=== PATIENT | female | born 1995 | race American Indian/Alaskan Native ===

== ENCOUNTER 2021-07-09 10:11 | Inpatient (IN) | payer MEDICAID ==
[2021-07-09] MEDS ORDERED: BUTORPHANOL 2 MG/1 ML INJ ONE (10:49)
[2021-07-09] MEDS ORDERED: TERBUTALINE 1 MG/1 ML INJ SUB-Q PRN (10:55)
[2021-07-09] MEDS ORDERED: ACETAMINOPHEN 325 MG TAB PO PRN (10:55)
[2021-07-09] MEDS ORDERED: METHYLERGONOVINE MALEATE 0.2 MG/ML VIAL IM PRN (10:55)
[2021-07-09] MEDS ORDERED: BUTORPHANOL 2 MG/1 ML INJ IV PRN ×2 (10:55)
[2021-07-09] MEDS ORDERED: ePHEDrine SULFATE 50 MG/1 ML INJ IV PRN ×2 (10:55→12:20)
[2021-07-09] MEDS ORDERED: LOPERAMIDE 2 MG CAP PO PRN (10:55)
[2021-07-09] MEDS ORDERED: MINERAL OIL 30 ML ORAL LIQD PO PRN (10:55)
[2021-07-09] MEDS ORDERED: ONDANSETRON 4 MG/2 ML INJ IV PRN ×2 (10:55→12:20)
[2021-07-09] MEDS ORDERED: miSOPROStol 200 MCG TAB PR PRN (10:55)
[2021-07-09] MEDS ORDERED: CARBOPROST TROMETHAMINE 250 MCG/1 ML INJ IM PRN (10:55)
[2021-07-09] MEDS ORDERED: OXYTOCIN 10 UNIT/1 ML INJ IM PRN (10:55)
[2021-07-09] MEDS ORDERED: LIDOCAINE (2%) 20 MG/1 ML VIAL 20 ML MDV INFILTRATI ONE (10:55)
[2021-07-09] MEDS ORDERED: OXYTOCIN DRIP 30 UNITS/500 ML BAG IV SCH ×2 (11:00→23:45)
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
--- NOTE | 2021-07-09 11:22 | Ultrasound Report ---
ULTRASOUND OBSTETRIC LIMITED INDICATION / CLINICAL INFORMATION: Evaluate cardiac activity. COMPARISON: OB ultrasound performed on 04/13/2021. FINDINGS: A single intrauterine fetus is seen in cephalic presentation. No cardiac activity is identified . IMPRESSION: Sonographic evidence of demise. Signer Name: Flakito Pope MD Signed: 07/09/2021 11:11 AM Workstation Name: [id number]
[2021-07-09] MEDS: LACTATED RINGERS 1,000 ML IV SCH ×2 (11:30→12:25)
[2021-07-09 11:56] LABS: Hemoglobin 11.4 gm/dl (10.1-14.3); Mean Corpuscular HGB Conc 34 % (30-34); Mean Corpuscular Volume 84 fl (79-97); Platelet Count 166 K/mm3 (140-440); Red Blood Count 4.05 M/mm3 (3.65-5.03); Red Cell Distribution Width 15.1 % (13.2-15.2)
[2021-07-09] MEDS ORDERED: diphenhydrAMINE 50 MG/ML VIAL IV PRN (12:20)
[2021-07-09] MEDS ORDERED: NALOXONE 2 MG/2 ML INJ IV PRN (12:20)
[2021-07-09] MEDS ORDERED: NalbUPHINE 10 MG/1 ML INJ IV PRN (12:20)
[2021-07-09] MEDS ORDERED: LACTATED RINGERS 250 ML IV SOLN IV ONE (12:20)
--- NOTE | 2021-07-09 12:44 | Anesthesia Consultation ---
Anesthesia Consult and Med Hx Date of service: 07/09/21 - Airway Anesthetic Teeth Evaluation: Good ROM Head & Neck: Adequate Mental/Hyoid Distance: Adequate Mallampati Class: Class III Intubation Access Assessment: Possibly Difficult - Pulmonary Exam CTA: Yes - Cardiac Exam Cardiac Exam: RRR - Pre-Operative Health Status ASA Pre-Surgery Classification: ASA2 Proposed Anesthetic Plan: Epidural - Pulmonary Hx Smoking: Yes Hx Asthma: No Hx Sleep Apnea: No - Cardiovascular System Hx Hypertension: Yes Hx Heart Attack/AMI: No Hx Angina: No - Central Nervous System Hx Seizures: No Hx Psychiatric Problems: No - Gastrointestinal Hx Gastroesophageal Reflux Disease: No - Endocrine Hx Renal Disease: No Hx Liver Disease: No Hx Insulin Dependent Diabetes: No Hx Non-Insulin Dependent Diabetes: No Hx Hypothyroidism: No Hx Hyperthyroidism: No - Hematic Hx Anemia: No Hx Sickle Cell Disease: No - Other Systems Hx Obesity: Yes
--- NOTE | 2021-07-09 12:45 | Progress Note ---
Labor Epidural - Labor Epidural Start Time: 12:31 Stop Time: 12:40 Performed by:: CAROLE ROTHMAN Procedure: Patient is requesting epidural for labor and pain. H&P, labs were reviewed. Patient IDed, all questions and concerns were answered, and consent was signed. Timeout was performed at bedside. Patient in sitting position. Sterile prep and drape was performed. 3ml of 1% lidocaine skin wheal at L[3]- L [4]. 17- gauge Tuohy epidural needle was advanced to loss of resistance with air technique 9cm. Negative CSF negative blood. Epidural catheter advanced to [15] centimeters. [negative] Aspiration [negative] test dose. Sterile dressing applied. Patient tolerated procedure.
[2021-07-09] MEDS: fentaNYL-BUPIV 2 MCG/ML-0.125% 200 MCG/100 ML BAG EPIDURAL SCH (13:10)
[2021-07-09] MEDS ORDERED: miSOPROStol 25 MCG TAB VG ONE (15:49)
[2021-07-09] MEDS ORDERED: miSOPROStol 100 MCG TAB VG SCH (16:00)
--- NOTE | 2021-07-09 17:56 | Event Note ---
Date: 07/09/21 Discussed with the patient findings of ultrasound with diagnosis IUFD. Patient is understandably upset with the diagnosis and findings. Discussed the plan of induction of labor. Patient is comfortable after epidural. Attempted to answer all the patient's questions. Discussed with the patient had no clear answer of cause we have right now. Discussed with patient to think about autopsy after delivery. Discussed we will evaluate placenta. Answer questions about to delivery and how we will be done. We will continue with current plan continue to keep patient as comfortable as possible.
--- NOTE | 2021-07-09 18:36 | Ultrasound Report ---
US OB limited INDICATION: Placenta Grade. COMPARISON: None available. FINDINGS: Placenta is right lateral. There is no significant vascularity in the placenta. Unable grade based on provided images. No heart tones are identified. Signer Name: Holden Jones MD Signed: 07/09/2021 6:31 PM Workstation Name: [id number]
[2021-07-09 19:21] LABS: Amphetamine Screen,Urine PRESUMPTIVE NEGATIVE; Benzodiazepines Screen,Urine PRESUMPTIVE NEGATIVE; Cannabinoid Screen,Urine PRESUMPTIVE POSITIVE; Cocaine Screen,Urine PRESUMPTIVE NEGATIVE; Methadone Screen,Urine PRESUMPTIVE NEGATIVE; Opiate Screen,Urine PRESUMPTIVE NEGATIVE
[2021-07-09] MEDS ORDERED: miSOPROStol 200 MCG TAB VG SCH (22:00)
[2021-07-10] MEDS: fentaNYL-BUPIV 2 MCG/ML-0.125% 200 MCG/100 ML BAG EPIDURAL SCH ×3 (00:02→22:25)
[2021-07-10] MEDS ORDERED: BUPIVACAINE/PF (0.25%) 2.5 MG/ML 10 ML VIAL INFILTRATI ONE (05:39)
--- NOTE | 2021-07-10 07:56 | Progress Note ---
Assessment and Plan A: 25 y.o. @ 33.1 wks, IUFD. Vaginal bleeding. Blood urine noted. Anxiety and depression. - Patient Problems (1) IUFD at 20 weeks or more of gestation Current Visit: Yes Status: Acute Plan to address problem: Continue with Pitocin per protocol. TOCO monitor adjusted. Anesthesia to come and bolus epidural. Will replace if needed. Benadryl ordered to see if this helps patient get some sleep. Continue to monitor anxiety and depression. - Psych has been consulted. - Awaiting Psych assessment and recommendations. Continue to monitor bleeding and blood in urine. Subjective - Subjective Date of service: 07/10/21 Principal diagnosis: IUFD @ 33.1 + wks, epidural in place, Pitocin infusion Interval history: Explained plan of care to patient and family member. Continue with Pitocin. Pt states that she is not comfortable with epidural. States that she is feeling contractions and just in general has a lot of abdominal pain. Anesthesia to bedside to evaluate. Also of note, according to the RN, the patient has not slept since admission. Patient reports: new complaints (Not comfortable with epidural. ), contractions Objective - Vital Signs Vital Signs: Vital Signs - 12hr 07/09/21 07/09/21 07/09/21 19:51 19:56 20:00 Temperature 98.0 F Pulse Rate 95 H 95 H Blood Pressure O2 Sat by Pulse 100 100 Oximetry 07/09/21 07/09/21 07/09/21 20:01 20:05 20:06 Temperature Pulse Rate 91 H 96 H 87 Blood Pressure 114/74 O2 Sat by Pulse 100 100 Oximetry 07/09/21 07/09/21 07/09/21 20:11 20:16 20:21 Temperature Pulse Rate 102 H 95 H 93 H Blood Pressure O2 Sat by Pulse 100 100 100 Oximetry 07/09/21 07/09/21 07/09/21 20:26 20:31 20:35 Temperature Pulse Rate 118 H 96 H 74 Blood Pressure 110/71 O2 Sat by Pulse 100 100 Oximetry 07/09/21 07/09/21 07/09/21 20:36 20:41 20:46 Temperature Pulse Rate 75 75 78 Blood Pressure O2 Sat by Pulse 100 100 100 Oximetry 07/09/21 07/09/21 07/09/21 20:51 20:56 21:01 Temperature Pulse Rate 86 112 H 84 Blood Pressure O2 Sat by Pulse 100 100 100 Oximetry 07/09/21 07/09/21 07/09/21 21:06 21:11 21:16 Temperature Pulse Rate 100 H 91 H 105 H Blood Pressure 111/65 O2 Sat by Pulse 100 100 100 Oximetry 07/09/21 07/09/21 07/09/21 21:21 21:26 21:27 Temperature Pulse Rate 90 99 H 103 H Blood Pressure 108/73 O2 Sat by Pulse 100 100 Oximetry 07/09/21 07/09/21 07/09/21 21:29 21:31 21:36 Temperature Pulse Rate 91 H 98 H 120 H Blood Pressure O2 Sat by Pulse 93 100 100 Oximetry 07/09/21 07/09/21 07/09/21 21:41 21:46 21:51 Temperature Pulse Rate 99 H 93 H 105 H Blood Pressure O2 Sat by Pulse 100 100 100 Oximetry 07/09/21 07/09/21 07/09/21 21:56 22:01 22:05 Temperature Pulse Rate 98 H 96 H 100 H Blood Pressure 112/74 O2 Sat by Pulse 100 100 Oximetry 07/09/21 07/09/21 07/09/21 22:06 22:11 22:16 Temperature Pulse Rate 123 H 102 H 90 Blood Pressure O2 Sat by Pulse 100 100 100 Oximetry 07/09/21 07/09/21 07/09/21 22:21 22:26 22:31 Temperature Pulse Rate 109 H 102 H 97 H Blood Pressure O2 Sat by Pulse 100 100 100 Oximetry 07/09/21 07/09/21 07/09/21 22:35 22:36 22:41 Temperature Pulse Rate 106 H 100 H 105 H Blood Pressure 112/69 O2 Sat by Pulse 100 99 Oximetry 07/09/21 07/09/21 07/09/21 22:46 22:51 22:56 Temperature Pulse Rate 114 H 95 H 100 H Blood Pressure O2 Sat by Pulse 99 100 100 Oximetry 07/09/21 07/09/21 07/09/21 23:01 23:05 23:06 Temperature Pulse Rate 100 H 101 H 100 H Blood Pressure 122/84 121/69 O2 Sat by Pulse 100 100 Oximetry 07/09/21 07/09/21 07/09/21 23:11 23:16 23:21 Temperature Pulse Rate 95 H 113 H 101 H Blood Pressure O2 Sat by Pulse 100 100 100 Oximetry 07/09/21 07/09/21 07/09/21 23:26 23:31 23:35 Temperature Pulse Rate 94 H 109 H 102 H Blood Pressure 117/89 O2 Sat by Pulse 100 100 Oximetry 07/09/21 07/09/21 07/09/21 23:36 23:41 23:46 Temperature Pulse Rate 101 H 94 H 94 H Blood Pressure O2 Sat by Pulse 100 100 100 Oximetry 07/09/21 07/09/21 07/10/21 23:51 23:56 00:01 Temperature Pulse Rate 109 H 98 H 98 H Blood Pressure O2 Sat by Pulse 100 100 100 Oximetry 07/10/21 07/10/21 07/10/21 00:15 00:18 00:20 Temperature Pulse Rate 89 95 H 99 H Blood Pressure 110/52 O2 Sat by Pulse 99 100 Oximetry 07/10/21 07/10/21 07/10/21 00:25 00:30 00:35 Temperature Pulse Rate 102 H 105 H 94 H Blood Pressure 112/68 O2 Sat by Pulse 100 100 100 Oximetry 07/10/21 07/10/21 07/10/21 00:40 00:45 00:50 Temperature Pulse Rate 113 H 106 H 103 H Blood Pressure O2 Sat by Pulse 99 100 99 Oximetry 07/10/21 07/10/21 07/10/21 00:55 01:00 01:05 Temperature Pulse Rate 92 H 90 85 Blood Pressure 119/72 O2 Sat by Pulse 99 99 99 Oximetry 07/10/21 07/10/21 07/10/21 01:10 01:15 01:20 Temperature Pulse Rate 109 H 95 H 88 Blood Pressure O2 Sat by Pulse 99 100 100 Oximetry 07/10/21 07/10/21 07/10/21 01:25 01:30 01:35 Temperature Pulse Rate 85 86 90 Blood Pressure 103/67 O2 Sat by Pulse 99 99 100 Oximetry 07/10/21 07/10/21 07/10/21 01:40 01:45 01:50 Temperature Pulse Rate 94 H 91 H 93 H Blood Pressure O2 Sat by Pulse 99 100 99 Oximetry 07/10/21 07/10/21 07/10/21 01:55 02:00 02:05 Temperature Pulse Rate 84 112 H 98 H Blood Pressure 112/58 O2 Sat by Pulse 99 98 99 Oximetry 07/10/21 07/10/21 07/10/21 02:10 02:15 02:20 Temperature Pulse Rate 82 88 85 Blood Pressure O2 Sat by Pulse 100 99 99 Oximetry 07/10/21 07/10/21 07/10/21 02:25 02:30 02:35 Temperature Pulse Rate 85 82 85 Blood Pressure 110/70 O2 Sat by Pulse 99 99 99 Oximetry 07/10/21 07/10/21 07/10/21 02:40 02:45 02:50 Temperature Pulse Rate 84 83 89 Blood Pressure O2 Sat by Pulse 99 99 99 Oximetry 07/10/21 07/10/21 07/10/21 02:55 03:00 03:05 Temperature Pulse Rate 85 86 102 H Blood Pressure 122/77 O2 Sat by Pulse 99 98 100 Oximetry 07/10/21 07/10/21 07/10/21 03:10 03:15 03:20 Temperature Pulse Rate 88 96 H 93 H Blood Pressure O2 Sat by Pulse 99 99 98 Oximetry 07/10/21 07/10/21 07/10/21 03:25 03:30 03:35 Temperature Pulse Rate 81 87 91 H Blood Pressure 115/69 O2 Sat by Pulse 99 98 100 Oximetry 07/10/21 07/10/21 07/10/21 03:40 03:45 03:50 Temperature Pulse Rate 87 110 H 96 H Blood Pressure O2 Sat by Pulse 99 98 100 Oximetry 07/10/21 07/10/21 07/10/21 03:55 04:00 04:05 Temperature Pulse Rate 85 91 H 81 Blood Pressure 113/72 O2 Sat by Pulse 100 99 99 Oximetry 07/10/21 07/10/21 07/10/21 04:10 04:15 04:20 Temperature Pulse Rate 88 97 H 103 H Blood Pressure O2 Sat by Pulse 98 99 98 Oximetry 07/10/21 07/10/21 07/10/21 04:25 04:30 04:35 Temperature Pulse Rate 102 H 101 H 110 H Blood Pressure 115/68 O2 Sat by Pulse 98 98 100 Oximetry 07/10/21 07/10/21 07/10/21 04:40 04:45 04:50 Temperature Pulse Rate 105 H 91 H 96 H Blood Pressure O2 Sat by Pulse 100 100 100 Oximetry 07/10/21 07/10/21 07/10/21 04:55 05:00 05:05 Temperature Pulse Rate 86 105 H 98 H Blood Pressure O2 Sat by Pulse 99 99 100 Oximetry 07/10/21 07/10/21 07/10/21 05:06 05:10 05:15 Temperature Pulse Rate 96 H 94 H 106 H Blood Pressure 100/51 O2 Sat by Pulse 100 100 Oximetry 07/10/21 07/10/21 07/10/21 05:20 05:25 05:30 Temperature Pulse Rate 100 H 96 H 102 H Blood Pressure O2 Sat by Pulse 100 99 99 Oximetry 07/10/21 07/10/21 07/10/21 05:35 05:40 05:45 Temperature Pulse Rate 97 H 107 H 106 H Blood Pressure 122/60 O2 Sat by Pulse 100 100 97 Oximetry 07/10/21 07/10/21 07/10/21 05:48 05:50 05:51 Temperature Pulse Rate 98 H 102 H 100 H Blood Pressure 119/70 115/72 O2 Sat by Pulse 97 Oximetry 07/10/21 07/10/21 07/10/21 05:53 05:55 05:56 Temperature Pulse Rate 102 H 102 H 92 H Blood Pressure 112/69 112/69 O2 Sat by Pulse 99 Oximetry 07/10/21 07/10/21 07/10/21 05:59 06:00 06:02 Temperature Pulse Rate 99 H 99 H 94 H Blood Pressure 102/59 105/68 O2 Sat by Pulse 99 Oximetry 07/10/21 07/10/21 07/10/21 06:05 06:09 06:10 Temperature Pulse Rate 100 H 103 H 106 H Blood Pressure 112/77 119/74 O2 Sat by Pulse 97 99 Oximetry 07/10/21 07/10/21 07/10/21 06:12 06:15 06:18 Temperature Pulse Rate 98 H 105 H 62 Blood Pressure 129/83 O2 Sat by Pulse 99 92 Oximetry 07/10/21 07/10/21 07/10/21 06:20 06:24 06:25 Temperature Pulse Rate 97 H 93 H 99 H Blood Pressure 128/87 O2 Sat by Pulse 98 99 Oximetry 07/10/21 07/10/21 07/10/21 06:27 06:30 06:33 Temperature Pulse Rate 98 H 89 89 Blood Pressure 114/59 114/58 O2 Sat by Pulse 99 Oximetry 0507/10/21 07/10/21 06:35 06:40 06:45 Temperature Pulse Rate 99 H 107 H 89 Blood Pressure O2 Sat by Pulse 99 99 100 Oximetry 07/10/21 07/10/21 07/10/21 06:48 06:50 06:55 Temperature Pulse Rate 111 H 94 H 89 Blood Pressure 112/77 O2 Sat by Pulse 99 99 Oximetry 07/10/21 07/10/21 07/10/21 07:00 07:04 07:05 Temperature Pulse Rate 79 80 79 Blood Pressure 135/79 O2 Sat by Pulse 100 98 Oximetry 07/10/21 07/10/21 07/10/21 07:10 07:15 07:20 Temperature Pulse Rate 72 81 93 H Blood Pressure O2 Sat by Pulse 99 99 99 Oximetry 07/10/21 07/10/21 07/10/21 07:25 07:30 07:33 Temperature Pulse Rate 91 H 86 90 Blood Pressure 143/76 O2 Sat by Pulse 100 98 Oximetry 07/10/21 07/10/21 07/10/21 07:35 07:40 07:45 Temperature Pulse Rate 105 H 86 85 Blood Pressure O2 Sat by Pulse 100 100 98 Oximetry - Exam Narrative Exam: Blood urine noted in younger catheter. A small amount of vaginal bleeding noted. Cervical exam unchanged. Pt did not tolerate vaginal exam. Cardiovascular: Regular rate Lungs: Normal air movement Vulva: both: normal Cervical Dilatation: 2 Cervical Effacement Percentage: 50 station: -3 Uterine Contraction Pattern: Regular Uterine Contraction Intensity: Strong/Firm Extremities: normal - Labs Labs: Abnormal Labs 07/09/21 10:50 WBC 14.4 H Laboratory Results - last 24 hr 07/09/21 07/09/21 07/09/21 10:50 10:50 10:50 WBC 14.4 H RBC 4.05 Hgb 11.4 Hct 34.0 MCV 84 MCH 28 MCHC 34 RDW 15.1 Plt Count 166 Urine Opiates Screen Urine Methadone Screen Ur Barbiturates Screen Ur Phencyclidine Scrn Ur Amphetamines Screen U Benzodiazepines Scrn Urine Cocaine Screen U Marijuana (THC) Screen Drugs of Abuse Note Syphilis IgG/IgM Ab Nonreactive Blood Type B POSITIVE Antibody Screen Negative 07/09/21 19:01 WBC RBC Hgb Hct MCV MCH MCHC RDW Plt Count Urine Opiates Screen Presumptive negative Urine Methadone Screen Presumptive negative Ur Barbiturates Screen Presumptive negative Ur Phencyclidine Scrn Presumptive negative Ur Amphetamines Screen Presumptive negative U Benzodiazepines Scrn Presumptive negative Urine Cocaine Screen Presumptive negative U Marijuana (THC) Screen Presumptive positive Drugs of Abuse Note Disclamer Syphilis IgG/IgM Ab Blood Type Antibody Screen
[2021-07-10] MEDS ORDERED: diphenhydrAMINE 50 MG/ML VIAL IV SCH (08:30)
--- NOTE | 2021-07-10 09:42 | Progress Note ---
Assessment and Plan - Patient Problems (1) 33 weeks gestation of Current Visit: Yes Status: Acute (2) IUFD at 20 weeks or more of gestation Current Visit: Yes Status: Acute Plan to address problem: Dark bloody urine in younger, however clearer in tube. Continue pitocin for now (3) Depression Current Visit: Yes Status: Acute (4) PTSD (post-traumatic stress disorder) Current Visit: Yes Status: Acute Subjective - Subjective Date of service: 07/10/21 Principal diagnosis: IUFD @ 33.1 + wks, epidural in place, Pitocin infusion Patient reports: new complaints (Not comfortable with epidural. ), contractions (pain) Objective - Vital Signs Vital Signs: Vital Signs - 12hr 07/09/21 07/09/21 07/09/21 21:41 21:46 21:51 Temperature Pulse Rate 99 H 93 H 105 H Blood Pressure O2 Sat by Pulse 100 100 100 Oximetry 07/09/21 07/09/21 07/09/21 21:56 22:01 22:05 Temperature Pulse Rate 98 H 96 H 100 H Blood Pressure 112/74 O2 Sat by Pulse 100 100 Oximetry 07/09/21 07/09/21 07/09/21 22:06 22:11 22:16 Temperature Pulse Rate 123 H 102 H 90 Blood Pressure O2 Sat by Pulse 100 100 100 Oximetry 07/09/21 07/09/21 07/09/21 22:21 22:26 22:31 Temperature Pulse Rate 109 H 102 H 97 H Blood Pressure O2 Sat by Pulse 100 100 100 Oximetry 07/09/21 07/09/21 07/09/21 22:35 22:36 22:41 Temperature Pulse Rate 106 H 100 H 105 H Blood Pressure 112/69 O2 Sat by Pulse 100 99 Oximetry 07/09/21 07/09/21 07/09/21 22:46 22:51 22:56 Temperature Pulse Rate 114 H 95 H 100 H Blood Pressure O2 Sat by Pulse 99 100 100 Oximetry 07/09/21 07/09/21 07/09/21 23:01 23:05 23:06 Temperature Pulse Rate 100 H 101 H 100 H Blood Pressure 122/84 121/69 O2 Sat by Pulse 100 100 Oximetry 07/09/21 07/09/21 07/09/21 23:11 23:16 23:21 Temperature Pulse Rate 95 H 113 H 101 H Blood Pressure O2 Sat by Pulse 100 100 100 Oximetry 07/09/21 07/09/21 07/09/21 23:26 23:31 23:35 Temperature Pulse Rate 94 H 109 H 102 H Blood Pressure 117/89 O2 Sat by Pulse 100 100 Oximetry 07/09/21 07/09/21 07/09/21 23:36 23:41 23:46 Temperature Pulse Rate 101 H 94 H 94 H Blood Pressure O2 Sat by Pulse 100 100 100 Oximetry 07/09/21 07/09/21 07/10/21 23:51 23:56 00:01 Temperature Pulse Rate 109 H 98 H 98 H Blood Pressure O2 Sat by Pulse 100 100 100 Oximetry 07/10/21 07/10/21 07/10/21 00:15 00:18 00:20 Temperature Pulse Rate 89 95 H 99 H Blood Pressure 110/52 O2 Sat by Pulse 99 100 Oximetry 07/10/21 07/10/21 07/10/21 00:25 00:30 00:35 Temperature Pulse Rate 102 H 105 H 94 H Blood Pressure 112/68 O2 Sat by Pulse 100 100 100 Oximetry 07/10/21 07/10/21 07/10/21 00:40 00:45 00:50 Temperature Pulse Rate 113 H 106 H 103 H Blood Pressure O2 Sat by Pulse 99 100 99 Oximetry 07/10/21 07/10/21 07/10/21 00:55 01:00 01:05 Temperature Pulse Rate 92 H 90 85 Blood Pressure 119/72 O2 Sat by Pulse 99 99 99 Oximetry 07/10/21 07/10/21 07/10/21 01:10 01:15 01:20 Temperature Pulse Rate 109 H 95 H 88 Blood Pressure O2 Sat by Pulse 99 100 100 Oximetry 07/10/21 07/10/21 07/10/21 01:25 01:30 01:35 Temperature Pulse Rate 85 86 90 Blood Pressure 103/67 O2 Sat by Pulse 99 99 100 Oximetry 07/10/21 07/10/21 07/10/21 01:40 01:45 01:50 Temperature Pulse Rate 94 H 91 H 93 H Blood Pressure O2 Sat by Pulse 99 100 99 Oximetry 07/10/21 07/10/21 07/10/21 01:55 02:00 02:05 Temperature Pulse Rate 84 112 H 98 H Blood Pressure 112/58 O2 Sat by Pulse 99 98 99 Oximetry 07/10/21 07/10/21 07/10/21 02:10 02:15 02:20 Temperature Pulse Rate 82 88 85 Blood Pressure O2 Sat by Pulse 100 99 99 Oximetry 07/10/21 07/10/21 07/10/21 02:25 02:30 02:35 Temperature Pulse Rate 85 82 85 Blood Pressure 110/70 O2 Sat by Pulse 99 99 99 Oximetry 07/10/21 07/10/21 07/10/21 02:40 02:45 02:50 Temperature Pulse Rate 84 83 89 Blood Pressure O2 Sat by Pulse 99 99 99 Oximetry 07/10/21 07/10/21 07/10/21 02:55 03:00 03:05 Temperature Pulse Rate 85 86 102 H Blood Pressure 122/77 O2 Sat by Pulse 99 98 100 Oximetry 07/10/21 07/10/21 07/10/21 03:10 03:15 03:20 Temperature Pulse Rate 88 96 H 93 H Blood Pressure O2 Sat by Pulse 99 99 98 Oximetry 07/10/21 07/10/21 07/10/21 03:25 03:30 03:35 Temperature Pulse Rate 81 87 91 H Blood Pressure 115/69 O2 Sat by Pulse 99 98 100 Oximetry 07/10/21 07/10/21 07/10/21 03:40 03:45 03:50 Temperature Pulse Rate 87 110 H 96 H Blood Pressure O2 Sat by Pulse 99 98 100 Oximetry 07/10/21 07/10/21 07/10/21 03:55 04:00 04:05 Temperature Pulse Rate 85 91 H 81 Blood Pressure 113/72 O2 Sat by Pulse 100 99 99 Oximetry 07/10/21 07/10/21 07/10/21 04:10 04:15 04:20 Temperature Pulse Rate 88 97 H 103 H Blood Pressure O2 Sat by Pulse 98 99 98 Oximetry 07/10/21 07/10/21 07/10/21 04:25 04:30 04:35 Temperature Pulse Rate 102 H 101 H 110 H Blood Pressure 115/68 O2 Sat by Pulse 98 98 100 Oximetry 07/10/21 07/10/21 07/10/21 04:40 04:45 04:50 Temperature Pulse Rate 105 H 91 H 96 H Blood Pressure O2 Sat by Pulse 100 100 100 Oximetry 07/10/21 07/10/21 07/10/21 04:55 05:00 05:05 Temperature Pulse Rate 86 105 H 98 H Blood Pressure O2 Sat by Pulse 99 99 100 Oximetry 07/10/21 07/10/21 07/10/21 05:06 05:10 05:15 Temperature Pulse Rate 96 H 94 H 106 H Blood Pressure 100/51 O2 Sat by Pulse 100 100 Oximetry 07/10/21 07/10/21 07/10/21 05:20 05:25 05:30 Temperature Pulse Rate 100 H 96 H 102 H Blood Pressure O2 Sat by Pulse 100 99 99 Oximetry 07/10/21 07/10/21 07/10/21 05:35 05:40 05:45 Temperature Pulse Rate 97 H 107 H 106 H Blood Pressure 122/60 O2 Sat by Pulse 100 100 97 Oximetry 07/10/21 07/10/21 07/10/21 05:48 05:50 05:51 Temperature Pulse Rate 98 H 102 H 100 H Blood Pressure 119/70 115/72 O2 Sat by Pulse 97 Oximetry 07/10/21 07/10/21 07/10/21 05:53 05:55 05:56 Temperature Pulse Rate 102 H 102 H 92 H Blood Pressure 112/69 112/69 O2 Sat by Pulse 99 Oximetry 07/10/21 07/10/21 07/10/21 05:59 06:00 06:02 Temperature 97.9 F Pulse Rate 99 H 99 H 94 H Blood Pressure 102/59 105/68 O2 Sat by Pulse 99 Oximetry 07/10/21 07/10/21 07/10/21 06:05 06:09 06:10 Temperature Pulse Rate 100 H 103 H 106 H Blood Pressure 112/77 119/74 O2 Sat by Pulse 97 99 Oximetry 07/10/21 07/10/21 07/10/21 06:12 06:15 06:18 Temperature Pulse Rate 98 H 105 H 62 Blood Pressure 129/83 O2 Sat by Pulse 99 92 Oximetry 07/10/21 07/10/21 07/10/21 06:20 06:24 06:25 Temperature Pulse Rate 97 H 93 H 99 H Blood Pressure 128/87 O2 Sat by Pulse 98 99 Oximetry 07/10/21 07/10/21 07/10/21 06:27 06:30 06:33 Temperature Pulse Rate 98 H 89 89 Blood Pressure 114/59 114/58 O2 Sat by Pulse 99 Oximetry 07/10/21 07/10/21 07/10/21 06:35 06:40 06:45 Temperature Pulse Rate 99 H 107 H 89 Blood Pressure O2 Sat by Pulse 99 99 100 Oximetry 07/10/21 07/10/21 07/10/21 06:48 06:50 06:55 Temperature Pulse Rate 111 H 94 H 89 Blood Pressure 112/77 O2 Sat by Pulse 99 99 Oximetry 07/10/21 07/10/21 07/10/21 07:00 07:04 07:05 Temperature Pulse Rate 79 80 79 Blood Pressure 135/79 O2 Sat by Pulse 100 98 Oximetry 07/10/21 07/10/21 07/10/21 07:10 07:15 07:20 Temperature Pulse Rate 72 81 93 H Blood Pressure O2 Sat by Pulse 99 99 99 Oximetry 07/10/21 07/10/21 07/10/21 07:25 07:30 07:33 Temperature Pulse Rate 91 H 86 90 Blood Pressure 143/76 O2 Sat by Pulse 100 98 Oximetry 07/10/21 07/10/21 07/10/21 07:35 07:40 07:45 Temperature Pulse Rate 105 H 86 85 Blood Pressure O2 Sat by Pulse 100 100 98 Oximetry 07/10/21 07/10/21 07/10/21 07:50 07:55 08:00 Temperature Pulse Rate 86 80 83 Blood Pressure O2 Sat by Pulse 99 100 100 Oximetry 07/10/21 07/10/21 07/10/21 08:05 08:10 08:15 Temperature Pulse Rate 99 H 100 H 101 H Blood Pressure O2 Sat by Pulse 100 100 99 Oximetry 07/10/21 07/10/21 07/10/21 08:18 08:20 08:25 Temperature Pulse Rate 93 H 90 96 H Blood Pressure 119/63 O2 Sat by Pulse 98 99 Oximetry 07/10/21 07/10/21 07/10/21 08:30 08:34 08:35 Temperature Pulse Rate 95 H 74 73 Blood Pressure 130/83 O2 Sat by Pulse 98 99 Oximetry 07/10/21 07/10/21 07/10/21 08:40 08:45 08:49 Temperature Pulse Rate 78 89 101 H Blood Pressure 120/70 O2 Sat by Pulse 99 98 Oximetry 07/10/21 07/10/21 07/10/21 08:50 08:55 09:00 Temperature Pulse Rate 95 H 94 H 81 Blood Pressure O2 Sat by Pulse 99 99 99 Oximetry 07/10/21 07/10/21 07/10/21 09:03 09:05 09:10 Temperature Pulse Rate 81 83 104 H Blood Pressure 113/66 O2 Sat by Pulse 100 100 Oximetry 07/10/21 07/10/21 07/10/21 09:15 09:18 09:20 Temperature Pulse Rate 87 81 102 H Blood Pressure 117/65 O2 Sat by Pulse 99 100 Oximetry 07/10/21 07/10/21 07/10/21 09:25 09:30 09:34 Temperature Pulse Rate 91 H 92 H 87 Blood Pressure 131/63 O2 Sat by Pulse 99 99 Oximetry 07/10/21 09:35 Temperature Pulse Rate 91 H Blood Pressure O2 Sat by Pulse 99 Oximetry - Exam Breasts: deferred Cardiovascular: Regular rate Lungs: Normal air movement Abdomen: Present: normal appearance Vulva: both: normal Uterus: Present: fundal height above umbilicus Uterine Contraction Monitor Mode: External Cervical Dilatation: 3 Cervical Effacement Percentage: 70 station: -1 - Labs Labs: Abnormal Labs 07/09/21 10:50 WBC 14.4 H Laboratory Results - last 24 hr 07/09/21 07/09/21 07/09/21 10:50 10:50 10:50 WBC 14.4 H RBC 4.05 Hgb 11.4 Hct 34.0 MCV 84 MCH 28 MCHC 34 RDW 15.1 Plt Count 166 Urine Opiates Screen Urine Methadone Screen Ur Barbiturates Screen Ur Phencyclidine Scrn Ur Amphetamines Screen U Benzodiazepines Scrn Urine Cocaine Screen U Marijuana (THC) Screen Drugs of Abuse Note Syphilis IgG/IgM Ab Nonreactive Blood Type B POSITIVE Antibody Screen Negative 07/09/21 19:01 WBC RBC Hgb Hct MCV MCH MCHC RDW Plt Count Urine Opiates Screen Presumptive negative Urine Methadone Screen Presumptive negative Ur Barbiturates Screen Presumptive negative Ur Phencyclidine Scrn Presumptive negative Ur Amphetamines Screen Presumptive negative U Benzodiazepines Scrn Presumptive negative Urine Cocaine Screen Presumptive negative U Marijuana (THC) Screen Presumptive positive Drugs of Abuse Note Disclamer Syphilis IgG/IgM Ab Blood Type Antibody Screen
[2021-07-10] MEDS: LACTATED RINGERS 1,000 ML IV SCH ×2 (09:48→22:24)
[2021-07-10 11:15] LABS: Hematocrit 21.6 % (30.3-42.9); Hemoglobin 7.1 gm/dl (10.1-14.3); Mean Corpuscular HGB Conc 33 % (30-34); Mean Corpuscular Volume 85 fl (79-97); Red Blood Count 2.55 M/mm3 (3.65-5.03); Red Cell Distribution Width 14.7 % (13.2-15.2)
[2021-07-10 11:22] LABS: Platelet Count 79 K/mm3 (140-440)
[2021-07-10 11:37] LABS: Alanine Aminotransferase 8 units/L (7-56); Blood Urea Nitrogen 12 mg/dL (7-17); Calcium 8.9 mg/dL (8.4-10.2); Hemolysis Index 2
[2021-07-10 11:38] LABS: BUN/Creatinine Ratio 17
--- NOTE | 2021-07-10 11:50 | Consultation ---
History of Present Illness - Reason for Consult Consult date: 07/10/21 Reason for consult: Psych hsitory - Chief Complaint Chief complaint: vaginal bleeding and abdominal pain which started at 0700 today - History of Present Psychiatric Illness The patient is a 25 year old female with history of depression, PTSD and anxiety disorder, consulted post demise. The patient was seen today. She is calm, alert and oriented x3. She reports noncompliant with psychotropic medications for the past 2 years. She endorses depression. The patient denies any current suicidal/homicidal ideation but admits having visual hallucinations " I see my daughter and my brother." She denies auditory hallucinations. PAST PSYCHIATRIC HISTORY Diagnoses: Depression, PTSD, Anxiety Suicide attempts or Self-harm behavior: Denies Prior psychiatric hospitalizations: Yes Substance Abuse history: Denies Previous psychiatric medications tried:unable to recall Outpatient treatment: Denies PAST MEDICAL HISTORY: Family Psychiatric History: None reported or documented SOCIAL HISTORY Single Living Arrangements:Lives with brother Employment Status: Unknown Access to guns/weapons: None reported Education:College History of Abuse: None reported Legal History: Unknown REVIEW OF SYSTEMS Constitutional: Negative for weight loss ENT: Negative for stridor Respiratory: Negative for cough or hemoptysis All other systems reviewed and are negative MENTAL STATUS EXAMINATION General Appearance and Behavior: Age appropriate, good hygiene, wearing appropriate clothes, good eye contact, cooperative with questioning Cooperation: Participating/engaged Psychomotor Behavior: unremarkable and within normal limits Mood: Depressed Affect and affective range: congruent with mood Thought Process: Goal directed Thought Content: Reality oriented Speech: Normal volume, Regular rate and rhythm. Intellectual Functioning: Average Suicidal Ideation:Denies Homicidal Ideation:Denies Hallucinations: Visual Delusions: None elicited Impulse Control: Limited Insight and Judgment: limited insight and good judgment Memory: Normal Attention: Normal Orientation: Alert, oriented. Assessment and Plan (1) Major depressive disorder (2) Current Visit: No Status: Acute Treatment Plan Start Setraline 25 mgpo daily Start Trazodone 50mg po qhs Start Vistaril 25 mg po every 6 hrs PRN Risks, benefits and alternatives of medications discussed with the patient, questions answered and consent obtained from patient. PSYCHOTHERAPY: Supportive psychotherapy provided MEDICAL: Per primary team DELIRIUM PRECAUTIONS: Please re-orient patient frequently, keep lights on during the day, and minimize benzodiazepines and opiates as these medications could worsen patient's confusion. CATALYST OPERATOR CHIEF: non indicated DISPOSITION: Do not recommend acute inpatient psychiatric hospitalization at this time.Genetic Supervisor will provide patient with psychiatric out patient resources. FOLLOW-UP: Will sign off. Thank you for the consult. Please contact with any questions and/or concerns. Case staffed with Dr. Vieyra Medications and Allergies Medications and Allergies Allergies Allergy/AdvReac Type Severity Reaction Status Date / Time No Known Allergies Allergy Verified 07/09/21 10:23 Home Medications Medication Instructions Recorded Confirmed Last Taken Type Sertraline [Zoloft] 25 mg PO QDAY 30 Days #30 tab 04/14/21 Unknown Rx hydrOXYzine PAMOATE [Vistaril] 25 mg PO Q6HR PRN 30 Days #60 04/14/21 Unknown Rx capsule Sertraline [Zoloft] 25 mg PO QDAY 30 Days #30 tab 07/10/21 Unknown Rx hydrOXYzine PAMOATE [Vistaril] 25 mg PO Q6HR PRN 30 Days #60 07/10/21 Unknown Rx capsule traZODone [Desyrel] 50 mg PO QHS 30 Days #30 tab 07/10/21 Unknown Rx Active Meds: Active Medications Acetaminophen (Acetaminophen 325 Mg Tab) 650 mg PO Q4H PRN PRN Reason: Pain, Mild (1-3) Last Admin: 07/10/21 00:23 Dose: 650 mg Butorphanol Tartrate (Butorphanol 2 Mg/1 Ml Inj) 1 mg IV Q2H PRN PRN Reason: Pain, Moderate(4-6) LABOR PAIN Butorphanol Tartrate (Butorphanol 2 Mg/1 Ml Inj) 2 mg IV Q2H PRN PRN Reason: Pain , Severe (7-10) Carboprost Tromethamine (Carboprost Tromethamine 250 Mcg/1 Ml Inj) 250 mcg IM ONCE PRN PRN Reason: Uterine Bleeding Diphenhydramine HCl (Diphenhydramine 50 Mg/Ml Vial) 12.5 mg IV Q2H PRN PRN Reason: Itching Last Admin: 07/10/21 01:59 Dose: 12.5 mg Ephedrine Sulfate (Ephedrine Sulfate 50 Mg/1 Ml Inj) 10 mg IV Q2M PRN PRN Reason: Hypotension Lactated Ringer's (Lactated Ringers) 1,000 mls @ 125 mls/hr IV DIRECT SHANIA Last Admin: 07/10/21 09:48 Dose: 125 mls/hr Oxytocin/Sodium Chloride (Pitocin/Ns 30 Unit/500ml) 30 units in 500 mls @ 40 mls/hr IV TITR SHANIA; Protocol Last Titration: 07/10/21 04:33 Dose: 12 mls/hr, 12 mls/hr Fentanyl/Bupivacaine/Sodium Chlor (Fentanyl-Bupiv 2 Mcg/Ml-0.125%) 200 mcg in 100 mls @ 12 mls/hr EPIDURAL TITR SHANIA; Protocol Last Admin: 07/10/21 06:33 Dose: 12 mls/hr Oxytocin/Sodium Chloride (Pitocin/Ns 30 Unit/500ml) 30 units in 500 mls @ 2 mls/hr IV TITR SHANIA; Protocol Loperamide HCl (Loperamide 2 Mg Cap) 2 mg PO ONCE PRN PRN Reason: give with Hemabate Methylergonovine Maleate (Methylergonovine Maleate 0.2 Mg/Ml Vial) 0.2 mg IM ONCE PRN PRN Reason: Uterine Bleeding Mineral Oil (Mineral Oil 30 Ml Oral Liqd) 30 ml PO QHS PRN PRN Reason: Constipation Misoprostol (Misoprostol 200 Mcg Tab) 800 mcg MO ONCE PRN PRN Reason: Uterine Bleeding Nalbuphine HCl (Nalbuphine 10 Mg/1 Ml Inj) 2.5 mg IV Q2H PRN PRN Reason: Itching Naloxone HCl (Naloxone 2 Mg/2 Ml Inj) 0.2 mg IV Q5M PRN PRN Reason: Respiratory sedation Ondansetron HCl (Ondansetron 4 Mg/2 Ml Inj) 4 mg IV Q8H PRN PRN Reason: Nausea And Vomiting Oxytocin (Oxytocin 10 Unit/1 Ml Inj) 10 unit IM ONCE PRN PRN Reason: Uterine Bleeding Terbutaline Sulfate (Terbutaline 1 Mg/1 Ml Inj) 0.25 mg SUB-Q ONCE PRN PRN Reason: Hyperstimulation/Hypertonicity Mental Status Exam - Vital signs Last Vital Signs Temp 97.9 F 07/10/21 06:00 Pulse 91 H 07/10/21 11:48 Resp 20 07/09/21 11:00 BP 114/85 07/10/21 11:48 Pulse Ox 98 07/10/21 11:46 Results Result Diagrams: 07/10/21 13:46 07/10/21 10:22 Abnormal lab results 07/09/21 07/10/21 07/10/21 Range/Units 10:50 10:22 10:22 WBC 14.4 H 17.7 H (4.5-11.0) K/mm3 RBC 2.55 L (3.65-5.03) M/mm3 Hgb 7.1 L D (10.1-14.3) gm/dl Hct 21.6 L D (30.3-42.9) % Plt Count 79 L (140-440) K/mm3 Sodium 134 L (137-145) mmol/L Carbon Dioxide 20 L (22-30) mmol/L Glucose 108 H (65-100) mg/dL Alkaline Phosphatase 338 H (35-129) units/L Total Protein 5.8 L (6.3-8.2) g/dL Albumin 3.0 L (3.9-5) g/dL All other labs normal.
[2021-07-10] MEDS ORDERED: hydrOXYzine PAMOATE 25 MG CAP PO PRN ×2 (11:52→16:05)
[2021-07-10] MEDS ORDERED: SODIUM CHLORIDE 0.9% 500 ML 500 ML IV SCH (12:20)
[2021-07-10] MEDS ORDERED: METOCLOPRAMIDE 10 MG/2 ML INJ IV SCH (12:48)
[2021-07-10] MEDS ORDERED: BICITRA ORAL LIQD 30ML PO SCH (12:48)
[2021-07-10] MEDS ORDERED: LACTATED RINGERS 1,000 ML IV SCH (13:00)
[2021-07-10] MEDS ORDERED: ceFAZolin/Water 2 GM/20 ML 2 GM/20 ML SYRINGE IV SCH (13:00)
--- NOTE | 2021-07-10 13:00 | Progress Note ---
<DEEP RAMIREZ - Last Filed: 07/10/21 13:07> Assessment and Plan 25 yo G1 @ 33.1 weeks with IUFD found upon admission, complete abruption confirmed via US H&H down trending from 11.4/34.0 plts 166 --> 7.1/21.6/ plts 79 SVE unchanged (/-1), no vaginal bleeding/clots noted at perineum. Abdomen distended VS WNL at this time Pain not well controlled Dr. Almanzar aware pt status P: T&C order already placed Transfuse 1 unit RBC STAT, blood available as of 1248, community life director retrieving blood at this time. Establish 2nd large bore IV access STAT Anesthesia paged STAT for pain control - Patient Problems (1) IUFD at 20 weeks or more of gestation Current Visit: Yes Status: Acute Subjective - Subjective Date of service: 07/10/21 Principal diagnosis: IUFD @ 33.1 + wks, epidural in place, Pitocin infusion Patient reports: new complaints (Not comfortable with epidural. ), contractions (pain) Objective - Vital Signs Vital Signs: Vital Signs - 12hr 07/10/21 07/10/21 07/10/21 01:05 01:10 01:15 Temperature Pulse Rate 85 109 H 95 H Blood Pressure 119/72 O2 Sat by Pulse 99 99 100 Oximetry 07/10/21 07/10/21 07/10/21 01:20 01:25 01:30 Temperature Pulse Rate 88 85 86 Blood Pressure O2 Sat by Pulse 100 99 99 Oximetry 07/10/21 07/10/21 07/10/21 01:35 01:40 01:45 Temperature Pulse Rate 90 94 H 91 H Blood Pressure 103/67 O2 Sat by Pulse 100 99 100 Oximetry 07/10/21 07/10/21 07/10/21 01:50 01:55 02:00 Temperature Pulse Rate 93 H 84 112 H Blood Pressure O2 Sat by Pulse 99 99 98 Oximetry 07/10/21 07/10/21 07/10/21 02:05 02:10 02:15 Temperature Pulse Rate 98 H 82 88 Blood Pressure 112/58 O2 Sat by Pulse 99 100 99 Oximetry 07/10/21 07/10/21 07/10/21 02:20 02:25 02:30 Temperature Pulse Rate 85 85 82 Blood Pressure O2 Sat by Pulse 99 99 99 Oximetry 07/10/21 07/10/21 07/10/21 02:35 02:40 02:45 Temperature Pulse Rate 85 84 83 Blood Pressure 110/70 O2 Sat by Pulse 99 99 99 Oximetry 07/10/21 07/10/21 07/10/21 02:50 02:55 03:00 Temperature Pulse Rate 89 85 86 Blood Pressure O2 Sat by Pulse 99 99 98 Oximetry 07/10/21 07/10/21 07/10/21 03:05 03:10 03:15 Temperature Pulse Rate 102 H 88 96 H Blood Pressure 122/77 O2 Sat by Pulse 100 99 99 Oximetry 07/10/21 07/10/21 07/10/21 03:20 03:25 03:30 Temperature Pulse Rate 93 H 81 87 Blood Pressure O2 Sat by Pulse 98 99 98 Oximetry 07/10/21 07/10/21 07/10/21 03:35 03:40 03:45 Temperature Pulse Rate 91 H 87 110 H Blood Pressure 115/69 O2 Sat by Pulse 100 99 98 Oximetry 07/10/21 07/10/21 07/10/21 03:50 03:55 04:00 Temperature Pulse Rate 96 H 85 91 H Blood Pressure O2 Sat by Pulse 100 100 99 Oximetry 07/10/21 07/10/21 07/10/21 04:05 04:10 04:15 Temperature Pulse Rate 81 88 97 H Blood Pressure 113/72 O2 Sat by Pulse 99 98 99 Oximetry 07/10/21 07/10/21 07/10/21 04:20 04:25 04:30 Temperature Pulse Rate 103 H 102 H 101 H Blood Pressure O2 Sat by Pulse 98 98 98 Oximetry 07/10/21 07/10/21 07/10/21 04:35 04:40 04:45 Temperature Pulse Rate 110 H 105 H 91 H Blood Pressure 115/68 O2 Sat by Pulse 100 100 100 Oximetry 07/10/21 07/10/21 07/10/21 04:50 04:55 05:00 Temperature Pulse Rate 96 H 86 105 H Blood Pressure O2 Sat by Pulse 100 99 99 Oximetry 07/10/21 07/10/21 07/10/21 05:05 05:06 05:10 Temperature Pulse Rate 98 H 96 H 94 H Blood Pressure 100/51 O2 Sat by Pulse 100 100 Oximetry 07/10/21 07/10/21 07/10/21 05:15 05:20 05:25 Temperature Pulse Rate 106 H 100 H 96 H Blood Pressure O2 Sat by Pulse 100 100 99 Oximetry 07/10/21 07/10/21 07/10/21 05:30 05:35 05:40 Temperature Pulse Rate 102 H 97 H 107 H Blood Pressure 122/60 O2 Sat by Pulse 99 100 100 Oximetry 07/10/21 07/10/21 07/10/21 05:45 05:48 05:50 Temperature Pulse Rate 106 H 98 H 102 H Blood Pressure 119/70 O2 Sat by Pulse 97 97 Oximetry 07/10/21 07/10/21 07/10/21 05:51 05:53 05:55 Temperature Pulse Rate 100 H 102 H 102 H Blood Pressure 115/72 112/69 O2 Sat by Pulse 99 Oximetry 07/10/21 07/10/21 07/10/21 05:56 05:59 06:00 Temperature 97.9 F Pulse Rate 92 H 99 H 99 H Blood Pressure 112/69 102/59 O2 Sat by Pulse 99 Oximetry 07/10/21 07/10/21 07/10/21 06:02 06:05 06:09 Temperature Pulse Rate 94 H 100 H 103 H Blood Pressure 105/68 112/77 119/74 O2 Sat by Pulse 97 Oximetry 07/10/21 07/10/21 07/10/21 06:10 06:12 06:15 Temperature Pulse Rate 106 H 98 H 105 H Blood Pressure 129/83 O2 Sat by Pulse 99 99 Oximetry 07/10/21 07/10/21 07/10/21 06:18 06:20 06:24 Temperature Pulse Rate 62 97 H 93 H Blood Pressure 128/87 O2 Sat by Pulse 92 98 Oximetry 07/10/21 07/10/21 07/10/21 06:25 06:27 06:30 Temperature Pulse Rate 99 H 98 H 89 Blood Pressure 114/59 O2 Sat by Pulse 99 99 Oximetry 07/10/21 07/10/21 07/10/21 06:33 06:35 06:40 Temperature Pulse Rate 89 99 H 107 H Blood Pressure 114/58 O2 Sat by Pulse 99 99 Oximetry 07/10/21 07/10/21 07/10/21 06:45 06:48 06:50 Temperature Pulse Rate 89 111 H 94 H Blood Pressure 112/77 O2 Sat by Pulse 100 99 Oximetry 07/10/21 07/10/21 07/10/21 06:55 07:00 07:04 Temperature Pulse Rate 89 79 80 Blood Pressure 135/79 O2 Sat by Pulse 99 100 Oximetry 07/10/21 07/10/21 07/10/21 07:05 07:10 07:15 Temperature Pulse Rate 79 72 81 Blood Pressure O2 Sat by Pulse 98 99 99 Oximetry 07/10/21 07/10/21 07/10/21 07:20 07:25 07:30 Temperature Pulse Rate 93 H 91 H 86 Blood Pressure O2 Sat by Pulse 99 100 98 Oximetry 07/10/21 07/10/21 07/10/21 07:33 07:35 07:40 Temperature Pulse Rate 90 105 H 86 Blood Pressure 143/76 O2 Sat by Pulse 100 100 Oximetry 07/10/21 07/10/21 07/10/21 07:45 07:50 07:55 Temperature Pulse Rate 85 86 80 Blood Pressure O2 Sat by Pulse 98 99 100 Oximetry 07/10/21 07/10/21 07/10/21 08:00 08:05 08:10 Temperature Pulse Rate 83 99 H 100 H Blood Pressure O2 Sat by Pulse 100 100 100 Oximetry 07/10/21 07/10/21 07/10/21 08:15 08:18 08:20 Temperature Pulse Rate 101 H 93 H 90 Blood Pressure 119/63 O2 Sat by Pulse 99 98 Oximetry 07/10/21 07/10/21 07/10/21 08:25 08:30 08:34 Temperature Pulse Rate 96 H 95 H 74 Blood Pressure 130/83 O2 Sat by Pulse 99 98 Oximetry 07/10/21 07/10/21 07/10/21 08:35 08:40 08:45 Temperature Pulse Rate 73 78 89 Blood Pressure O2 Sat by Pulse 99 99 98 Oximetry 07/10/21 07/10/21 07/10/21 08:49 08:50 08:55 Temperature Pulse Rate 101 H 95 H 94 H Blood Pressure 120/70 O2 Sat by Pulse 99 99 Oximetry 07/10/21 07/10/21 07/10/21 09:00 09:03 09:05 Temperature Pulse Rate 81 81 83 Blood Pressure 113/66 O2 Sat by Pulse 99 100 Oximetry 07/10/21 07/10/21 07/10/21 09:10 09:15 09:18 Temperature Pulse Rate 104 H 87 81 Blood Pressure 117/65 O2 Sat by Pulse 100 99 Oximetry 07/10/21 07/10/21 07/10/21 09:20 09:25 09:30 Temperature Pulse Rate 102 H 91 H 92 H Blood Pressure O2 Sat by Pulse 100 99 99 Oximetry 07/10/21 07/10/21 07/10/21 09:34 09:35 09:40 Temperature Pulse Rate 87 91 H 88 Blood Pressure 131/63 O2 Sat by Pulse 99 100 Oximetry 07/10/21 07/10/21 07/10/21 09:45 09:48 09:50 Temperature Pulse Rate 106 H 111 H 105 H Blood Pressure 134/81 O2 Sat by Pulse 100 99 Oximetry 07/10/21 07/10/21 07/10/21 09:55 10:00 10:03 Temperature Pulse Rate 104 H 99 H 99 H Blood Pressure 128/75 O2 Sat by Pulse 99 100 Oximetry 07/10/21 07/10/21 07/10/21 10:05 10:10 10:15 Temperature Pulse Rate 102 H 108 H 95 H Blood Pressure O2 Sat by Pulse 98 99 98 Oximetry 07/10/21 07/10/21 07/10/21 10:18 10:20 10:25 Temperature Pulse Rate 90 99 H 95 H Blood Pressure 120/76 O2 Sat by Pulse 99 99 Oximetry 07/10/21 07/10/21 07/10/21 10:30 10:35 10:40 Temperature Pulse Rate 99 H 91 H 85 Blood Pressure O2 Sat by Pulse 97 99 100 Oximetry 07/10/21 07/10/21 07/10/21 10:44 10:45 10:48 Temperature Pulse Rate 90 95 H 90 Blood Pressure 105/63 102/60 O2 Sat by Pulse 99 Oximetry 07/10/21 07/10/21 07/10/21 10:50 10:55 11:00 Temperature Pulse Rate 89 92 H 103 H Blood Pressure O2 Sat by Pulse 99 99 99 Oximetry 07/10/21 07/10/21 07/10/21 11:06 11:11 11:16 Temperature Pulse Rate 85 85 87 Blood Pressure 101/82 O2 Sat by Pulse 99 99 99 Oximetry 07/10/21 07/10/21 07/10/21 11:18 11:21 11:26 Temperature Pulse Rate 86 86 95 H Blood Pressure 103/78 O2 Sat by Pulse 100 99 Oximetry 07/10/21 07/10/21 07/10/21 11:31 11:33 11:36 Temperature Pulse Rate 88 85 88 Blood Pressure 114/84 O2 Sat by Pulse 99 100 Oximetry 07/10/21 07/10/21 07/10/21 11:41 11:46 11:48 Temperature Pulse Rate 94 H 94 H 91 H Blood Pressure 114/85 O2 Sat by Pulse 100 98 Oximetry 07/10/21 07/10/21 07/10/21 11:51 11:56 12:01 Temperature Pulse Rate 86 87 91 H Blood Pressure O2 Sat by Pulse 99 99 98 Oximetry 07/10/21 07/10/21 07/10/21 12:03 12:06 12:11 Temperature Pulse Rate 106 H 83 100 H Blood Pressure 145/77 O2 Sat by Pulse 99 99 Oximetry 07/10/21 07/10/21 07/10/21 12:16 12:19 12:21 Temperature Pulse Rate 98 H 99 H 95 H Blood Pressure 108/70 O2 Sat by Pulse 100 100 Oximetry 07/10/21 07/10/21 07/10/21 12:26 12:31 12:35 Temperature Pulse Rate 107 H 104 H 94 H Blood Pressure O2 Sat by Pulse 99 100 92 Oximetry 07/10/21 07/10/21 07/10/21 12:36 12:41 12:46 Temperature Pulse Rate 108 H 94 H 95 H Blood Pressure O2 Sat by Pulse 100 100 100 Oximetry 07/10/21 07/10/21 07/10/21 12:48 12:51 12:56 Temperature Pulse Rate 90 92 H 86 Blood Pressure 120/95 O2 Sat by Pulse 100 100 Oximetry - Exam Narrative Exam: Upon entering room, sitting upright in bed, pt's mother at bedside, reports just changing peripad, believes daughter's abdomen has become more distended since this AM. Reporting continuous lower abdominal pain 12/01. Epidural currently infusing. Snyder draining 400mL dark cola colored urine. Intact IV infusing LR, pitocin paused at this time. Abdomen: Present: distention, tenderness, rigidity Vulva: both: normal Uterus: Present: firm Uterine Contraction Monitor Mode: External Cervical Dilatation: 3 (unchanged ) Cervical Effacement Percentage: 70 station: -1 Uterine Contraction Frequency (min): 1 Uterine Tone Measurement Phase: Contraction Uterine Contraction Intensity: Hypertonic Extremities: normal - Labs Labs: Abnormal Labs 07/09/21 07/09/21 07/10/21 10:50 10:50 10:22 WBC 14.4 H 17.7 H RBC 2.55 L Hgb 7.1 L D Hct 21.6 L D Plt Count 79 L Sodium Carbon Dioxide Glucose Alkaline Phosphatase Total Protein Albumin Crossmatch See Detail 07/10/21 10:22 WBC RBC Hgb Hct Plt Count Sodium 134 L Carbon Dioxide 20 L Glucose 108 H Alkaline Phosphatase 338 H Total Protein 5.8 L Albumin 3.0 L Crossmatch Laboratory Results - last 24 hr 07/09/21 07/09/21 07/09/21 10:50 10:50 19:01 WBC RBC Hgb Hct MCV MCH MCHC RDW Plt Count Sodium Potassium Chloride Carbon Dioxide Anion Gap BUN Creatinine Estimated GFR BUN/Creatinine Ratio Glucose Calcium Total Bilirubin AST ALT Alkaline Phosphatase Total Protein Albumin Albumin/Globulin Ratio Urine Opiates Screen Presumptive negative Urine Methadone Screen Presumptive negative Ur Barbiturates Screen Presumptive negative Ur Phencyclidine Scrn Presumptive negative Ur Amphetamines Screen Presumptive negative U Benzodiazepines Scrn Presumptive negative Urine Cocaine Screen Presumptive negative U Marijuana (THC) Screen Presumptive positive Drugs of Abuse Note Disclamer Syphilis IgG/IgM Ab Nonreactive SARS-CoV-2 (PCR) Blood Type B POSITIVE Antibody Screen Negative Crossmatch See Detail 07/10/21 07/10/21 07/10/21 10:22 10:22 10:45 WBC 17.7 H RBC 2.55 L Hgb 7.1 L D Hct 21.6 L D MCV 85 MCH 28 MCHC 33 RDW 14.7 Plt Count 79 L Sodium 134 L Potassium 3.9 Chloride 102.1 Carbon Dioxide 20 L Anion Gap 16 BUN 12 Creatinine 0.7 Estimated GFR > 60 BUN/Creatinine Ratio 17 Glucose 108 H Calcium 8.9 Total Bilirubin 0.20 AST 16 ALT 8 Alkaline Phosphatase 338 H Total Protein 5.8 L Albumin 3.0 L Albumin/Globulin Ratio 1.1 Urine Opiates Screen Urine Methadone Screen Ur Barbiturates Screen Ur Phencyclidine Scrn Ur Amphetamines Screen U Benzodiazepines Scrn Urine Cocaine Screen U Marijuana (THC) Screen Drugs of Abuse Note Syphilis IgG/IgM Ab SARS-CoV-2 (PCR) Negative Blood Type Antibody Screen Crossmatch <JESSE,JAILYN D - Last Filed: 07/10/21 14:23> Assessment and Plan Patient was resting in bed complained of vaginal pain, alert and appropriately responsive, Mother present.Recent cervical exam by Elfego Ramirez cervix unchanged. VSS Uterine fundus tender to palpation, appears larger than earlier exam No active bleeding from vagina noted UO adequate, urine in tube slightly cloudy but decreased blood Labs noted Coag's and repeat CBC ordered (clinically she's stable, VS do not reflect drop drop 11-->7.[address] w/o contrast to assess for intraabdominal blood although no obviosu evidence for uterine rupture and no clear risk Pitocin has been turned off Plan of care discussed with patient and her mother. - Patient Problems (1) 33 weeks gestation of Current Visit: Yes Status: Acute (2) IUFD at 20 weeks or more of gestation Current Visit: Yes Status: Acute (3) Depression Current Visit: Yes Status: Acute (4) PTSD (post-traumatic stress disorder) Current Visit: Yes Status: Acute Objective - Vital Signs Vital Signs: Vital Signs - 12hr 07/10/21 07/10/21 07/10/21 02:15 02:20 02:25 Temperature Pulse Rate 88 85 85 Blood Pressure O2 Sat by Pulse 99 99 99 Oximetry 07/10/21 07/10/21 07/10/21 02:30 02:35 02:40 Temperature Pulse Rate 82 85 84 Blood Pressure 110/70 O2 Sat by Pulse 99 99 99 Oximetry 07/10/21 07/10/21 07/10/21 02:45 02:50 02:55 Temperature Pulse Rate 83 89 85 Blood Pressure O2 Sat by Pulse 99 99 99 Oximetry 07/10/21 07/10/21 07/10/21 03:00 03:05 03:10 Temperature Pulse Rate 86 102 H 88 Blood Pressure 122/77 O2 Sat by Pulse 98 100 99 Oximetry 07/10/21 07/10/21 07/10/21 03:15 03:20 03:25 Temperature Pulse Rate 96 H 93 H 81 Blood Pressure O2 Sat by Pulse 99 98 99 Oximetry 07/10/21 07/10/21 07/10/21 03:30 03:35 03:40 Temperature Pulse Rate 87 91 H 87 Blood Pressure 115/69 O2 Sat by Pulse 98 100 99 Oximetry 07/10/21 07/10/21 07/10/21 03:45 03:50 03:55 Temperature Pulse Rate 110 H 96 H 85 Blood Pressure O2 Sat by Pulse 98 100 100 Oximetry 07/10/21 07/10/21 07/10/21 04:00 04:05 04:10 Temperature Pulse Rate 91 H 81 88 Blood Pressure 113/72 O2 Sat by Pulse 99 99 98 Oximetry 07/10/21 07/10/21 07/10/21 04:15 04:20 04:25 Temperature Pulse Rate 97 H 103 H 102 H Blood Pressure O2 Sat by Pulse 99 98 98 Oximetry 07/10/21 07/10/21 07/10/21 04:30 04:35 04:40 Temperature Pulse Rate 101 H 110 H 105 H Blood Pressure 115/68 O2 Sat by Pulse 98 100 100 Oximetry 07/10/21 07/10/21 07/10/21 04:45 04:50 04:55 Temperature Pulse Rate 91 H 96 H 86 Blood Pressure O2 Sat by Pulse 100 100 99 Oximetry 07/10/21 07/10/21 07/10/21 05:00 05:05 05:06 Temperature Pulse Rate 105 H 98 H 96 H Blood Pressure 100/51 O2 Sat by Pulse 99 100 Oximetry 07/10/21 07/10/21 07/10/21 05:10 05:15 05:20 Temperature Pulse Rate 94 H 106 H 100 H Blood Pressure O2 Sat by Pulse 100 100 100 Oximetry 07/10/21 07/10/21 07/10/21 05:25 05:30 05:35 Temperature Pulse Rate 96 H 102 H 97 H Blood Pressure 122/60 O2 Sat by Pulse 99 99 100 Oximetry 07/10/21 07/10/21 07/10/21 05:40 05:45 05:48 Temperature Pulse Rate 107 H 106 H 98 H Blood Pressure 119/70 O2 Sat by Pulse 100 97 Oximetry 07/10/21 07/10/21 07/10/21 05:50 05:51 05:53 Temperature Pulse Rate 102 H 100 H 102 H Blood Pressure 115/72 112/69 O2 Sat by Pulse 97 Oximetry 07/10/21 07/10/21 07/10/21 05:55 05:56 05:59 Temperature Pulse Rate 102 H 92 H 99 H Blood Pressure 112/69 102/59 O2 Sat by Pulse 99 Oximetry 07/10/21 07/10/21 07/10/21 06:00 06:02 06:05 Temperature 97.9 F Pulse Rate 99 H 94 H 100 H Blood Pressure 105/68 112/77 O2 Sat by Pulse 99 97 Oximetry 07/10/21 07/10/21 07/10/21 06:09 06:10 06:12 Temperature Pulse Rate 103 H 106 H 98 H Blood Pressure 119/74 129/83 O2 Sat by Pulse 99 Oximetry 07/10/21 07/10/21 07/10/21 06:15 06:18 06:20 Temperature Pulse Rate 105 H 62 97 H Blood Pressure O2 Sat by Pulse 99 92 98 Oximetry 07/10/21 07/10/21 07/10/21 06:24 06:25 06:27 Temperature Pulse Rate 93 H 99 H 98 H Blood Pressure 128/87 114/59 O2 Sat by Pulse 99 Oximetry 07/10/21 07/10/21 07/10/21 06:30 06:33 06:35 Temperature Pulse Rate 89 89 99 H Blood Pressure 114/58 O2 Sat by Pulse 99 99 Oximetry 07/10/21 07/10/21 07/10/21 06:40 06:45 06:48 Temperature Pulse Rate 107 H 89 111 H Blood Pressure 112/77 O2 Sat by Pulse 99 100 Oximetry 07/10/21 07/10/21 07/10/21 06:50 06:55 07:00 Temperature Pulse Rate 94 H 89 79 Blood Pressure O2 Sat by Pulse 99 99 100 Oximetry 07/10/21 07/10/21 07/10/21 07:04 07:05 07:10 Temperature Pulse Rate 80 79 72 Blood Pressure 135/79 O2 Sat by Pulse 98 99 Oximetry 07/10/21 07/10/21 07/10/21 07:15 07:20 07:25 Temperature Pulse Rate 81 93 H 91 H Blood Pressure O2 Sat by Pulse 99 99 100 Oximetry 07/10/21 07/10/21 07/10/21 07:30 07:33 07:35 Temperature Pulse Rate 86 90 105 H Blood Pressure 143/76 O2 Sat by Pulse 98 100 Oximetry 07/10/21 07/10/21 07/10/21 07:40 07:45 07:50 Temperature Pulse Rate 86 85 86 Blood Pressure O2 Sat by Pulse 100 98 99 Oximetry 07/10/21 07/10/21 07/10/21 07:55 08:00 08:05 Temperature Pulse Rate 80 83 99 H Blood Pressure O2 Sat by Pulse 100 100 100 Oximetry 07/10/21 07/10/21 07/10/21 08:10 08:15 08:18 Temperature Pulse Rate 100 H 101 H 93 H Blood Pressure 119/63 O2 Sat by Pulse 100 99 Oximetry 07/10/21 07/10/21 07/10/21 08:20 08:25 08:30 Temperature Pulse Rate 90 96 H 95 H Blood Pressure O2 Sat by Pulse 98 99 98 Oximetry 07/10/21 07/10/21 07/10/21 08:34 08:35 08:40 Temperature Pulse Rate 74 73 78 Blood Pressure 130/83 O2 Sat by Pulse 99 99 Oximetry 07/10/21 07/10/21 07/10/21 08:45 08:49 08:50 Temperature Pulse Rate 89 101 H 95 H Blood Pressure 120/70 O2 Sat by Pulse 98 99 Oximetry 07/10/21 07/10/21 07/10/21 08:55 09:00 09:03 Temperature Pulse Rate 94 H 81 81 Blood Pressure 113/66 O2 Sat by Pulse 99 99 Oximetry 07/10/21 07/10/21 07/10/21 09:05 09:10 09:15 Temperature Pulse Rate 83 104 H 87 Blood Pressure O2 Sat by Pulse 100 100 99 Oximetry 07/10/21 07/10/21 07/10/21 09:18 09:20 09:25 Temperature Pulse Rate 81 102 H 91 H Blood Pressure 117/65 O2 Sat by Pulse 100 99 Oximetry 07/10/21 07/10/21 07/10/21 09:30 09:34 09:35 Temperature Pulse Rate 92 H 87 91 H Blood Pressure 131/63 O2 Sat by Pulse 99 99 Oximetry 07/10/21 07/10/21 07/10/21 09:40 09:45 09:48 Temperature Pulse Rate 88 106 H 111 H Blood Pressure 134/81 O2 Sat by Pulse 100 100 Oximetry 07/10/21 07/10/21 07/10/21 09:50 09:55 10:00 Temperature Pulse Rate 105 H 104 H 99 H Blood Pressure O2 Sat by Pulse 99 99 100 Oximetry 07/10/21 07/10/21 07/10/21 10:03 10:05 10:10 Temperature Pulse Rate 99 H 102 H 108 H Blood Pressure 128/75 O2 Sat by Pulse 98 99 Oximetry 07/10/21 07/10/21 07/10/21 10:15 10:18 10:20 Temperature Pulse Rate 95 H 90 99 H Blood Pressure 120/76 O2 Sat by Pulse 98 99 Oximetry 07/10/21 07/10/21 07/10/21 10:25 10:30 10:35 Temperature Pulse Rate 95 H 99 H 91 H Blood Pressure O2 Sat by Pulse 99 97 99 Oximetry 07/10/21 07/10/21 07/10/21 10:40 10:44 10:45 Temperature Pulse Rate 85 90 95 H Blood Pressure 105/63 O2 Sat by Pulse 100 99 Oximetry 07/10/21 07/10/21 07/10/21 10:48 10:50 10:55 Temperature Pulse Rate 90 89 92 H Blood Pressure 102/60 O2 Sat by Pulse 99 99 Oximetry 07/10/21 07/10/21 07/10/21 11:00 11:06 11:11 Temperature Pulse Rate 103 H 85 85 Blood Pressure 101/82 O2 Sat by Pulse 99 99 99 Oximetry 07/10/21 07/10/21 07/10/21 11:16 11:18 11:21 Temperature Pulse Rate 87 86 86 Blood Pressure 103/78 O2 Sat by Pulse 99 100 Oximetry 07/10/21 07/10/21 07/10/21 11:26 11:31 11:33 Temperature Pulse Rate 95 H 88 85 Blood Pressure 114/84 O2 Sat by Pulse 99 99 Oximetry 07/10/21 07/10/21 07/10/21 11:36 11:41 11:46 Temperature Pulse Rate 88 94 H 94 H Blood Pressure O2 Sat by Pulse 100 100 98 Oximetry 07/10/21 07/10/21 07/10/21 11:48 11:51 11:56 Temperature Pulse Rate 91 H 86 87 Blood Pressure 114/85 O2 Sat by Pulse 99 99 Oximetry 07/10/21 07/10/21 07/10/21 12:01 12:03 12:06 Temperature Pulse Rate 91 H 106 H 83 Blood Pressure 145/77 O2 Sat by Pulse 98 99 Oximetry 07/10/21 07/10/21 07/10/21 12:11 12:16 12:19 Temperature Pulse Rate 100 H 98 H 99 H Blood Pressure 108/70 O2 Sat by Pulse 99 100 Oximetry 07/10/21 07/10/21 07/10/21 12:21 12:26 12:31 Temperature Pulse Rate 95 H 107 H 104 H Blood Pressure O2 Sat by Pulse 100 99 100 Oximetry 07/10/21 07/10/21 07/10/21 12:35 12:36 12:41 Temperature Pulse Rate 94 H 108 H 94 H Blood Pressure O2 Sat by Pulse 92 100 100 Oximetry 07/10/21 07/10/21 07/10/21 12:46 12:48 12:51 Temperature Pulse Rate 95 H 90 92 H Blood Pressure 120/95 O2 Sat by Pulse 100 100 Oximetry 07/10/21 07/10/21 07/10/21 12:56 13:01 13:04 Temperature Pulse Rate 86 93 H 94 H Blood Pressure 139/85 O2 Sat by Pulse 100 99 Oximetry 07/10/21 07/10/21 07/10/21 13:06 13:11 13:16 Temperature Pulse Rate 96 H 99 H 97 H Blood Pressure O2 Sat by Pulse 100 100 99 Oximetry 07/10/21 07/10/21 07/10/21 13:18 13:21 13:26 Temperature Pulse Rate 99 H 103 H 95 H Blood Pressure 117/81 O2 Sat by Pulse 100 100 Oximetry 07/10/21 07/10/21 07/10/21 13:31 13:33 13:36 Temperature Pulse Rate 84 85 82 Blood Pressure 128/82 O2 Sat by Pulse 100 100 Oximetry 07/10/21 07/10/21 07/10/21 13:41 13:46 13:48 Temperature Pulse Rate 85 96 H 100 H Blood Pressure 130/77 O2 Sat by Pulse 100 100 Oximetry 07/10/21 07/10/21 13:51 13:56 Temperature Pulse Rate 100 H 97 H Blood Pressure O2 Sat by Pulse 100 100 Oximetry - Labs Labs: Abnormal Labs 07/09/21 07/09/21 07/10/21 10:50 10:50 10:22 WBC 14.4 H 17.7 H RBC 2.55 L Hgb 7.1 L D Hct 21.6 L D Plt Count 79 L Sodium Carbon Dioxide Glucose Alkaline Phosphatase Total Protein Albumin Crossmatch See Detail 07/10/21 10:22 WBC RBC Hgb Hct Plt Count Sodium 134 L Carbon Dioxide 20 L Glucose 108 H Alkaline Phosphatase 338 H Total Protein 5.8 L Albumin 3.0 L Crossmatch Laboratory Results - last 24 hr 07/09/21 07/09/21 07/09/21 10:50 10:50 19:01 WBC RBC Hgb Hct MCV MCH MCHC RDW Plt Count Sodium Potassium Chloride Carbon Dioxide Anion Gap BUN Creatinine Estimated GFR BUN/Creatinine Ratio Glucose Calcium Total Bilirubin AST ALT Alkaline Phosphatase Total Protein Albumin Albumin/Globulin Ratio Urine Opiates Screen Presumptive negative Urine Methadone Screen Presumptive negative Ur Barbiturates Screen Presumptive negative Ur Phencyclidine Scrn Presumptive negative Ur Amphetamines Screen Presumptive negative U Benzodiazepines Scrn Presumptive negative Urine Cocaine Screen Presumptive negative U Marijuana (THC) Screen Presumptive positive Drugs of Abuse Note Disclamer Syphilis IgG/IgM Ab Nonreactive SARS-CoV-2 (PCR) Blood Type B POSITIVE Antibody Screen Negative Crossmatch See Detail 07/10/21 07/10/21 07/10/21 10:22 10:22 10:45 WBC 17.7 H RBC 2.55 L Hgb 7.1 L D Hct 21.6 L D MCV 85 MCH 28 MCHC 33 RDW 14.7 Plt Count 79 L Sodium 134 L Potassium 3.9 Chloride 102.1 Carbon Dioxide 20 L Anion Gap 16 BUN 12 Creatinine 0.7 Estimated GFR > 60 BUN/Creatinine Ratio 17 Glucose 108 H Calcium 8.9 Total Bilirubin 0.20 AST 16 ALT 8 Alkaline Phosphatase 338 H Total Protein 5.8 L Albumin 3.0 L Albumin/Globulin Ratio 1.1 Urine Opiates Screen Urine Methadone Screen Ur Barbiturates Screen Ur Phencyclidine Scrn Ur Amphetamines Screen U Benzodiazepines Scrn Urine Cocaine Screen U Marijuana (THC) Screen Drugs of Abuse Note Syphilis IgG/IgM Ab SARS-CoV-2 (PCR) Negative Blood Type Antibody Screen Crossmatch
[2021-07-10] MEDS ORDERED: FAMOTIDINE 20 MG/2 ML INJ IV ONE (14:00)
[2021-07-10] MEDS ORDERED: AZITHROMYCIN/NS 500 MG/250 ML 500 MG/250 ML BAG IV ONE (14:00)
[2021-07-10 14:14] LABS: Hematocrit 20.5 % (30.3-42.9); Hemoglobin 6.9 gm/dl (10.1-14.3); Mean Corpuscular HGB Conc 34 % (30-34); Mean Corpuscular Volume 84 fl (79-97); Platelet Count 82 K/mm3 (140-440); Red Blood Count 2.44 M/mm3 (3.65-5.03); Red Cell Distribution Width 14.8 % (13.2-15.2)
[2021-07-10 14:24] LABS: INR 1.03 (0.87-1.13)
[2021-07-10 14:25] LABS: Fibrinogen 169 mg/dl (211-480); Partial Thromboplastin Time 28.1 Sec. (24.2-36.6)
--- NOTE | 2021-07-10 14:48 | Cat Scan Report ---
CT ABDOMEN AND PELVIS WITHOUT CONTRAST INDICATION / CLINICAL INFORMATION: Look for blood in abdomen vaginal bleeding and abdominal pain 33. 1 weeks with IUFD found upon admission, complete abruption confirmed via US . TECHNIQUE: Axial CT images were obtained through the abdomen and pelvis without IV contrast. All CT scans at this location are performed using CT dose reduction for ALARA by means of automated exposure control. COMPARISON: OB ultrasound dated 07/09/[address] of the chest dated 04/13/2021 FINDINGS: LOWER CHEST: Several metallic densities are noted in the left lung with multiple adjacent fractured r ibs. AORTA / ARTERIES: No significant abnormality. IVC / VEINS: No significant abnormality. LYMPH NODES: No significant adenopathy. COLON: No significant abnormality. APPENDIX: No significant abnormality. STOMACH / SMALL BOWEL: No significant abnormality. PERITONEUM: There is a small amount of free fluid along the bilateral paracolic gutters and adjacent to the spleen. This fluid does not demonstrate increased Hounsfield units to suggest high density flu id No free air. No fluid collection. LIVER: No significant abnormality. GALLBLADDER: No significant abnormality. BILE DUCTS: No significant abnormality. PANCREAS: No significant abnormality. SPLEEN: No significant abnormality. ADRENALS: No significant abnormality. RIGHT KIDNEY / URETER: Moderate right hydronephrosis. No nephrolithiasis. LEFT KIDNEY / URETER: No significant abnormality. URINARY BLADDER: Snyder within the urinary bladder. REPRODUCTIVE ORGANS: Fetus is noted within the uterus. SKELETAL SYSTEM: Old left-sided rib fractures. ADDITIONAL FINDINGS: None. IMPRESSION: 1. Small amount of free fluid within the abdomen which does not demonstrate Hounsfield units to sugge st blood products. 2. Moderate right hydronephrosis. 3. Additional findings above. Signer Name: Darrell Lozano DO Signed: 07/10/2021 2:43 PM Workstation Name: [id number]
[2021-07-10] MEDS ORDERED: SODIUM CHLORIDE 0.9% 500 ML 500 ML IV ONE (15:09)
[2021-07-10] MEDS: SERTRALINE 25 MG TAB PO SCH (15:15)
--- NOTE | 2021-07-10 15:37 | Progress Note ---
Subjective Date of service: 07/10/21 Principal diagnosis: IUFD @ 33.1 + wks, epidural in place, Pitocin infusion Interval history: Patient complain of back and vaginal pain multiple time during the day. Her pain is not relieved by multiple Epidural boluses. Discussed replacement of Epidural at length several times but she refuses to D/C current catheter or to replace it. The need for GETA if surgery is required also discussed. #20 gauge IV placed Right Hand. Objective - Constitutional Vitals: Vital Signs - 12hr 07/10/21 07/10/21 07/10/21 03:30 03:35 03:40 Temperature Pulse Rate 87 91 H 87 Blood Pressure 115/69 O2 Sat by Pulse 98 100 99 Oximetry 07/10/21 07/10/21 07/10/21 03:45 03:50 03:55 Temperature Pulse Rate 110 H 96 H 85 Blood Pressure O2 Sat by Pulse 98 100 100 Oximetry 07/10/21 07/10/21 07/10/21 04:00 04:05 04:10 Temperature Pulse Rate 91 H 81 88 Blood Pressure 113/72 O2 Sat by Pulse 99 99 98 Oximetry 07/10/21 07/10/21 07/10/21 04:15 04:20 04:25 Temperature Pulse Rate 97 H 103 H 102 H Blood Pressure O2 Sat by Pulse 99 98 98 Oximetry 07/10/21 07/10/21 07/10/21 04:30 04:35 04:40 Temperature Pulse Rate 101 H 110 H 105 H Blood Pressure 115/68 O2 Sat by Pulse 98 100 100 Oximetry 07/10/21 07/10/21 07/10/21 04:45 04:50 04:55 Temperature Pulse Rate 91 H 96 H 86 Blood Pressure O2 Sat by Pulse 100 100 99 Oximetry 07/10/21 07/10/21 07/10/21 05:00 05:05 05:06 Temperature Pulse Rate 105 H 98 H 96 H Blood Pressure 100/51 O2 Sat by Pulse 99 100 Oximetry 07/10/21 07/10/21 07/10/21 05:10 05:15 05:20 Temperature Pulse Rate 94 H 106 H 100 H Blood Pressure O2 Sat by Pulse 100 100 100 Oximetry 07/10/21 07/10/21 07/10/21 05:25 05:30 05:35 Temperature Pulse Rate 96 H 102 H 97 H Blood Pressure 122/60 O2 Sat by Pulse 99 99 100 Oximetry 07/10/21 07/10/21 07/10/21 05:40 05:45 05:48 Temperature Pulse Rate 107 H 106 H 98 H Blood Pressure 119/70 O2 Sat by Pulse 100 97 Oximetry 07/10/21 07/10/21 07/10/21 05:50 05:51 05:53 Temperature Pulse Rate 102 H 100 H 102 H Blood Pressure 115/72 112/69 O2 Sat by Pulse 97 Oximetry 07/10/21 07/10/21 07/10/21 05:55 05:56 05:59 Temperature Pulse Rate 102 H 92 H 99 H Blood Pressure 112/69 102/59 O2 Sat by Pulse 99 Oximetry 07/10/21 07/10/21 07/10/21 06:00 06:02 06:05 Temperature 97.9 F Pulse Rate 99 H 94 H 100 H Blood Pressure 105/68 112/77 O2 Sat by Pulse 99 97 Oximetry 07/10/21 07/10/21 07/10/21 06:09 06:10 06:12 Temperature Pulse Rate 103 H 106 H 98 H Blood Pressure 119/74 129/83 O2 Sat by Pulse 99 Oximetry 07/10/21 07/10/21 07/10/21 06:15 06:18 06:20 Temperature Pulse Rate 105 H 62 97 H Blood Pressure O2 Sat by Pulse 99 92 98 Oximetry 07/10/21 07/10/21 07/10/21 06:24 06:25 06:27 Temperature Pulse Rate 93 H 99 H 98 H Blood Pressure 128/87 114/59 O2 Sat by Pulse 99 Oximetry 07/10/21 07/10/21 07/10/21 06:30 06:33 06:35 Temperature Pulse Rate 89 89 99 H Blood Pressure 114/58 O2 Sat by Pulse 99 99 Oximetry 07/10/21 07/10/21 07/10/21 06:40 06:45 06:48 Temperature Pulse Rate 107 H 89 111 H Blood Pressure 112/77 O2 Sat by Pulse 99 100 Oximetry 07/10/21 07/10/21 07/10/21 06:50 06:55 07:00 Temperature Pulse Rate 94 H 89 79 Blood Pressure O2 Sat by Pulse 99 99 100 Oximetry 07/10/21 07/10/21 07/10/21 07:04 07:05 07:10 Temperature Pulse Rate 80 79 72 Blood Pressure 135/79 O2 Sat by Pulse 98 99 Oximetry 07/10/21 07/10/21 07/10/21 07:15 07:20 07:25 Temperature Pulse Rate 81 93 H 91 H Blood Pressure O2 Sat by Pulse 99 99 100 Oximetry 07/10/21 07/10/21 07/10/21 07:30 07:33 07:35 Temperature Pulse Rate 86 90 105 H Blood Pressure 143/76 O2 Sat by Pulse 98 100 Oximetry 07/10/21 07/10/21 07/10/21 07:40 07:45 07:50 Temperature Pulse Rate 86 85 86 Blood Pressure O2 Sat by Pulse 100 98 99 Oximetry 07/10/21 07/10/21 07/10/21 07:55 08:00 08:05 Temperature Pulse Rate 80 83 99 H Blood Pressure O2 Sat by Pulse 100 100 100 Oximetry 07/10/21 07/10/21 07/10/21 08:10 08:15 08:18 Temperature Pulse Rate 100 H 101 H 93 H Blood Pressure 119/63 O2 Sat by Pulse 100 99 Oximetry 07/10/21 07/10/21 07/10/21 08:20 08:25 08:30 Temperature Pulse Rate 90 96 H 95 H Blood Pressure O2 Sat by Pulse 98 99 98 Oximetry 07/10/21 07/10/21 07/10/21 08:34 08:35 08:40 Temperature Pulse Rate 74 73 78 Blood Pressure 130/83 O2 Sat by Pulse 99 99 Oximetry 07/10/21 07/10/21 07/10/21 08:45 08:49 08:50 Temperature Pulse Rate 89 101 H 95 H Blood Pressure 120/70 O2 Sat by Pulse 98 99 Oximetry 07/10/21 07/10/21 07/10/21 08:55 09:00 09:03 Temperature Pulse Rate 94 H 81 81 Blood Pressure 113/66 O2 Sat by Pulse 99 99 Oximetry 07/10/21 07/10/21 07/10/21 09:05 09:10 09:15 Temperature Pulse Rate 83 104 H 87 Blood Pressure O2 Sat by Pulse 100 100 99 Oximetry 07/10/21 07/10/21 07/10/21 09:18 09:20 09:25 Temperature Pulse Rate 81 102 H 91 H Blood Pressure 117/65 O2 Sat by Pulse 100 99 Oximetry 07/10/21 07/10/21 07/10/21 09:30 09:34 09:35 Temperature Pulse Rate 92 H 87 91 H Blood Pressure 131/63 O2 Sat by Pulse 99 99 Oximetry 07/10/21 07/10/21 07/10/21 09:40 09:45 09:48 Temperature Pulse Rate 88 106 H 111 H Blood Pressure 134/81 O2 Sat by Pulse 100 100 Oximetry 07/10/21 07/10/21 07/10/21 09:50 09:55 10:00 Temperature Pulse Rate 105 H 104 H 99 H Blood Pressure O2 Sat by Pulse 99 99 100 Oximetry 07/10/21 07/10/21 07/10/21 10:03 10:05 10:10 Temperature Pulse Rate 99 H 102 H 108 H Blood Pressure 128/75 O2 Sat by Pulse 98 99 Oximetry 07/10/21 07/10/21 07/10/21 10:15 10:18 10:20 Temperature Pulse Rate 95 H 90 99 H Blood Pressure 120/76 O2 Sat by Pulse 98 99 Oximetry 07/10/21 07/10/21 07/10/21 10:25 10:30 10:35 Temperature Pulse Rate 95 H 99 H 91 H Blood Pressure O2 Sat by Pulse 99 97 99 Oximetry 07/10/21 07/10/21 07/10/21 10:40 10:44 10:45 Temperature Pulse Rate 85 90 95 H Blood Pressure 105/63 O2 Sat by Pulse 100 99 Oximetry 07/10/21 07/10/21 07/10/21 10:48 10:50 10:55 Temperature Pulse Rate 90 89 92 H Blood Pressure 102/60 O2 Sat by Pulse 99 99 Oximetry 07/10/21 07/10/21 07/10/21 11:00 11:06 11:11 Temperature Pulse Rate 103 H 85 85 Blood Pressure 101/82 O2 Sat by Pulse 99 99 99 Oximetry 07/10/21 07/10/21 07/10/21 11:16 11:18 11:21 Temperature Pulse Rate 87 86 86 Blood Pressure 103/78 O2 Sat by Pulse 99 100 Oximetry 07/10/21 07/10/21 07/10/21 11:26 11:31 11:33 Temperature Pulse Rate 95 H 88 85 Blood Pressure 114/84 O2 Sat by Pulse 99 99 Oximetry 07/10/21 07/10/21 07/10/21 11:36 11:41 11:46 Temperature Pulse Rate 88 94 H 94 H Blood Pressure O2 Sat by Pulse 100 100 98 Oximetry 07/10/21 07/10/21 07/10/21 11:48 11:51 11:56 Temperature Pulse Rate 91 H 86 87 Blood Pressure 114/85 O2 Sat by Pulse 99 99 Oximetry 07/10/21 07/10/21 07/10/21 12:01 12:03 12:06 Temperature Pulse Rate 91 H 106 H 83 Blood Pressure 145/77 O2 Sat by Pulse 98 99 Oximetry 07/10/21 07/10/21 07/10/21 12:11 12:16 12:19 Temperature Pulse Rate 100 H 98 H 99 H Blood Pressure 108/70 O2 Sat by Pulse 99 100 Oximetry 07/10/21 07/10/21 07/10/21 12:21 12:26 12:31 Temperature Pulse Rate 95 H 107 H 104 H Blood Pressure O2 Sat by Pulse 100 99 100 Oximetry 07/10/21 07/10/21 07/10/21 12:35 12:36 12:41 Temperature Pulse Rate 94 H 108 H 94 H Blood Pressure O2 Sat by Pulse 92 100 100 Oximetry 07/10/21 07/10/21 07/10/21 12:46 12:48 12:51 Temperature Pulse Rate 95 H 90 92 H Blood Pressure 120/95 O2 Sat by Pulse 100 100 Oximetry 07/10/21 07/10/21 07/10/21 12:56 13:01 13:04 Temperature Pulse Rate 86 93 H 94 H Blood Pressure 139/85 O2 Sat by Pulse 100 99 Oximetry 07/10/21 07/10/21 07/10/21 13:06 13:11 13:16 Temperature Pulse Rate 96 H 99 H 97 H Blood Pressure O2 Sat by Pulse 100 100 99 Oximetry 07/10/21 07/10/21 07/10/21 13:18 13:21 13:26 Temperature Pulse Rate 99 H 103 H 95 H Blood Pressure 117/81 O2 Sat by Pulse 100 100 Oximetry 07/10/21 07/10/21 07/10/21 13:31 13:33 13:36 Temperature Pulse Rate 84 85 82 Blood Pressure 128/82 O2 Sat by Pulse 100 100 Oximetry 07/10/21 07/10/21 07/10/21 13:41 13:46 13:48 Temperature Pulse Rate 85 96 H 100 H Blood Pressure 130/77 O2 Sat by Pulse 100 100 Oximetry 07/10/21 07/10/21 07/10/21 13:51 13:56 14:39 Temperature Pulse Rate 100 H 97 H 86 Blood Pressure O2 Sat by Pulse 100 100 100 Oximetry 07/10/21 07/10/21 07/10/21 14:44 14:49 14:54 Temperature Pulse Rate 83 98 H 87 Blood Pressure O2 Sat by Pulse 100 100 100 Oximetry 07/10/21 07/10/21 07/10/21 14:59 15:04 15:09 Temperature Pulse Rate 83 83 89 Blood Pressure O2 Sat by Pulse 100 100 100 Oximetry 07/10/21 07/10/21 07/10/21 15:14 15:19 15:24 Temperature Pulse Rate 96 H 99 H 98 H Blood Pressure O2 Sat by Pulse 100 100 100 Oximetry - Labs CBC & Chem 7: 07/10/21 13:46 07/10/21 10:22 Labs: Abnormal lab results 07/09/21 07/10/21 07/10/21 Range/Units 10:50 10:22 10:22 WBC 17.7 H (4.5-11.0) K/mm3 RBC 2.55 L (3.65-5.03) M/mm3 Hgb 7.1 L D (10.1-14.3) gm/dl Hct 21.6 L D (30.3-42.9) % Plt Count 79 L (140-440) K/mm3 Fibrinogen (211-480) mg/dl Sodium 134 L (137-145) mmol/L Carbon Dioxide 20 L (22-30) mmol/L Glucose 108 H (65-100) mg/dL Alkaline Phosphatase 338 H (35-129) units/L Total Protein 5.8 L (6.3-8.2) g/dL Albumin 3.0 L (3.9-5) g/dL Crossmatch See Detail 07/10/21 07/10/21 Range/Units 13:46 13:46 WBC 19.1 H (4.5-11.0) K/mm3 RBC 2.44 L (3.65-5.03) M/mm3 Hgb 6.9 L (10.1-14.3) gm/dl Hct 20.5 L (30.3-42.9) % Plt Count 82 L (140-440) K/mm3 Fibrinogen 169 L (211-480) mg/dl Sodium (137-145) mmol/L Carbon Dioxide (22-30) mmol/L Glucose (65-100) mg/dL Alkaline Phosphatase (35-129) units/L Total Protein (6.3-8.2) g/dL Albumin (3.9-5) g/dL Crossmatch
[2021-07-10] MEDS ORDERED: NALOXONE 0.4 MG/1 ML INJ IV PRN (16:01)
[2021-07-10] MEDS ORDERED: MORPHINE/NS 30 MG-30 ML PCA INJ IV SCH (16:05)
[2021-07-10 21:01] LABS: Hematocrit 23.1 % (30.3-42.9); Hemoglobin 7.7 gm/dl (10.1-14.3); Mean Corpuscular HGB Conc 34 % (30-34); Mean Corpuscular Volume 84 fl (79-97); Red Blood Count 2.74 M/mm3 (3.65-5.03); Red Cell Distribution Width 14.9 % (13.2-15.2)
[2021-07-10 21:11] LABS: Platelet Count 85 K/mm3 (140-440)
[2021-07-10] MEDS ORDERED: ePHEDrine SULFATE 50 MG/1 ML INJ ONE (21:33)
[2021-07-10] MEDS ORDERED: hydrALAZINE 20 MG/1 ML INJ IV PRN (22:29)
[2021-07-11] MEDS ORDERED: NALOXONE 0.4 MG/1 ML INJ IV PRN (02:51)
--- NOTE | 2021-07-11 03:08 | Event Note ---
Date: 07/11/21 s/w RN, UO 1000mL, blood tinged urine. Pain control has been difficult, Pitocin was held until the [employer] pump was available. [employer] pump now available however RN states patient declined [id number] [employer] but is ok with Dilaudid [employer]. Instrd RN to start Pitocin now while [employer] is being arranged by pharmacy. RN states she was instrd by Anesthesia to clamp Epidural catheter and hold epidural pump infusion when [employer] is started. Pharmacy was made aware of the [employer] change also Vistaril will be sent to the floor for administration as order. BP's noted, will check CMP/CBC/coags, may need MgSO4 for severe range BP's.
[2021-07-11] MEDS: HYDROmorphone/NS 6 MG/30 ML PCA INJ IV SCH ×2 (03:50→19:14)
--- NOTE | 2021-07-11 04:44 | Progress Note ---
Assessment and Plan A: 25 y.o. @ 33.2 wks, IUFD. SALESPERSON SHOES for pain. s/p transfusion of PRBCs and FFP. - Patient Problems (1) IUFD at 20 weeks or more of gestation Current Visit: Yes Status: Acute Plan to address problem: SALESPERSON SHOES started for pain. Continue to monitor bleeding. Monitor urine output. Continue with IOL with Pitocin. Awaiting results of CBC coags s/p PRBCs and FFP transfusions. - Will consult with Dr. Almanzar regarding further need for transfusions. Subjective - Subjective Date of service: 07/11/21 Principal diagnosis: IUFD @ 33.2 + wks, SALESPERSON SHOES started, s/p transfusion PRBCs and FFP Interval history: Pt still not comfortable. Per patient she is having a significant amount of pain. Her SALESPERSON SHOES has been started. Pt was given the button to administer her pain medication via SALESPERSON SHOES and she asked "Can ya'll push that for me"? Explained to the patient that she is the only one who can push the button for pain relief. Discussed unchanged cervical exam and need to increase Pitocin to help her contract. We also discussed results of all testing completed at the time of this note. She is aware that we are awaiting the results of her CBC and coags. Denies shortness of breath, feeling lightheaded, and dizzy. Patient reports: new complaints (Not comfortable with epidural. ), contractions (pain) Objective - Vital Signs Vital Signs: Vital Signs - 12hr 07/10/21 07/10/21 07/10/21 16:44 16:49 16:54 Temperature Pulse Rate 98 H 90 98 H Respiratory Rate Blood Pressure O2 Sat by Pulse 100 100 100 Oximetry 07/10/21 07/10/21 07/10/21 16:59 17:04 17:09 Temperature Pulse Rate 103 H 88 96 H Respiratory Rate Blood Pressure O2 Sat by Pulse 96 100 100 Oximetry 07/10/21 07/10/21 07/10/21 17:10 17:14 17:15 Temperature 98.1 F Pulse Rate 101 H 92 H 88 Respiratory 18 Rate Blood Pressure 119/76 118/62 O2 Sat by Pulse 100 Oximetry 07/10/21 07/10/21 07/10/21 17:16 17:19 17:20 Temperature 98.4 F 98.8 F Pulse Rate 86 89 86 Respiratory 18 16 Rate Blood Pressure 118/62 111/87 111/87 O2 Sat by Pulse 100 Oximetry 07/10/21 07/10/21 07/10/21 17:24 17:29 17:30 Temperature 98.0 F Pulse Rate 86 89 95 H Respiratory 16 Rate Blood Pressure 139/68 O2 Sat by Pulse 100 100 Oximetry 07/10/21 07/10/21 07/10/21 17:31 17:34 17:39 Temperature Pulse Rate 95 H 99 H 89 Respiratory Rate Blood Pressure 139/68 O2 Sat by Pulse 99 100 Oximetry 07/10/21 07/10/21 07/10/21 17:43 17:44 17:45 Temperature 98.2 F Pulse Rate 83 89 89 Respiratory 18 Rate Blood Pressure 118/76 118/76 O2 Sat by Pulse 100 Oximetry 07/10/21 07/10/21 07/10/21 17:49 17:54 17:58 Temperature Pulse Rate 96 H 92 H 127 H Respiratory Rate Blood Pressure 135/98 O2 Sat by Pulse 99 100 Oximetry 07/10/21 07/10/21 07/10/21 17:59 18:00 18:04 Temperature 98.2 F Pulse Rate 95 H 92 H 98 H Respiratory 18 Rate Blood Pressure 135/98 O2 Sat by Pulse 100 99 Oximetry 07/10/21 07/10/21 07/10/21 18:09 18:13 18:14 Temperature Pulse Rate 101 H 93 H 101 H Respiratory Rate Blood Pressure 140/91 O2 Sat by Pulse 100 99 Oximetry 07/10/21 07/10/21 07/10/21 18:15 18:19 18:24 Temperature 98.1 F Pulse Rate 95 H 93 H 90 Respiratory 18 Rate Blood Pressure 140/91 O2 Sat by Pulse 100 100 Oximetry 07/10/21 07/10/21 07/10/21 18:29 18:30 18:34 Temperature 98.1 F Pulse Rate 76 79 82 Respiratory 16 Rate Blood Pressure 133/82 133/82 O2 Sat by Pulse 100 100 Oximetry 07/10/21 07/10/21 07/10/21 18:39 18:43 18:44 Temperature Pulse Rate 85 95 H 102 H Respiratory Rate Blood Pressure 134/90 O2 Sat by Pulse 99 100 Oximetry 07/10/21 07/10/21 07/10/21 18:45 18:49 18:54 Temperature 98.2 F Pulse Rate 95 H 95 H 85 Respiratory 16 Rate Blood Pressure 134/90 O2 Sat by Pulse 100 99 Oximetry 07/10/21 07/10/21 07/10/21 18:58 18:59 19:00 Temperature 98.2 F Pulse Rate 78 84 78 Respiratory 18 Rate Blood Pressure 125/73 125/73 O2 Sat by Pulse 100 Oximetry 07/10/21 07/10/21 07/10/21 19:04 19:09 19:12 Temperature Pulse Rate 81 87 88 Respiratory Rate Blood Pressure 129/82 O2 Sat by Pulse 100 100 Oximetry 07/10/21 07/10/21 07/10/21 19:14 19:19 19:24 Temperature Pulse Rate 83 80 98 H Respiratory Rate Blood Pressure O2 Sat by Pulse 100 100 100 Oximetry 07/10/21 07/10/21 07/10/21 19:29 19:32 19:34 Temperature Pulse Rate 100 H 90 93 H Respiratory Rate Blood Pressure 192/118 141/68 O2 Sat by Pulse 99 99 Oximetry 07/10/21 07/10/21 07/10/21 19:39 19:43 19:44 Temperature Pulse Rate 98 H 89 92 H Respiratory Rate Blood Pressure 136/84 O2 Sat by Pulse 99 100 Oximetry 07/10/21 07/10/21 07/10/21 19:49 19:54 19:57 Temperature Pulse Rate 99 H 97 H 88 Respiratory Rate Blood Pressure 149/93 O2 Sat by Pulse 100 99 Oximetry 07/10/21 07/10/21 07/10/21 19:59 20:04 20:09 Temperature Pulse Rate 95 H 97 H 96 H Respiratory Rate Blood Pressure O2 Sat by Pulse 99 99 100 Oximetry 07/10/21 07/10/21 07/10/21 20:13 20:14 20:19 Temperature Pulse Rate 94 H 103 H 102 H Respiratory Rate Blood Pressure 140/82 O2 Sat by Pulse 100 99 Oximetry 07/10/21 07/10/21 07/10/21 20:24 20:28 20:29 Temperature Pulse Rate 100 H 90 98 H Respiratory Rate Blood Pressure 127/82 O2 Sat by Pulse 100 99 Oximetry 07/10/21 07/10/21 07/10/21 20:34 20:39 20:42 Temperature Pulse Rate 101 H 95 H 90 Respiratory Rate Blood Pressure 120/76 O2 Sat by Pulse 100 100 Oximetry 07/10/21 07/10/21 07/10/21 20:44 20:49 20:50 Temperature 98.1 F Pulse Rate 97 H 101 H 84 Respiratory 20 Rate Blood Pressure 159/92 O2 Sat by Pulse 100 100 100 Oximetry 07/10/21 07/10/21 07/10/21 20:51 20:54 20:55 Temperature 98.2 F Pulse Rate 90 86 93 H Respiratory 18 Rate Blood Pressure 138/86 183/91 O2 Sat by Pulse 100 100 Oximetry 07/10/21 07/10/21 07/10/21 20:59 21:00 21:01 Temperature 98.2 F Pulse Rate 92 H 86 86 Respiratory 18 Rate Blood Pressure 135/79 135/79 O2 Sat by Pulse 99 Oximetry 07/10/21 07/10/21 07/10/21 21:04 21:05 21:08 Temperature 98.2 F Pulse Rate 91 H 89 89 Respiratory 18 Rate Blood Pressure 141/103 141/103 O2 Sat by Pulse 100 100 Oximetry 07/10/21 07/10/21 07/10/21 21:09 21:10 21:14 Temperature 98.1 F Pulse Rate 85 89 80 Respiratory 18 Rate Blood Pressure 140/94 140/94 O2 Sat by Pulse 100 100 100 Oximetry 07/10/21 07/10/21 07/10/21 21:15 21:19 21:20 Temperature 98.1 F 98.1 F Pulse Rate 84 97 H 96 H Respiratory 16 18 Rate Blood Pressure 164/95 154/94 O2 Sat by Pulse 100 100 99 Oximetry 07/10/21 07/10/21 07/10/21 21:24 21:25 21:26 Temperature 98.1 F Pulse Rate 88 89 89 Respiratory 18 Rate Blood Pressure 169/94 169/94 O2 Sat by Pulse 100 100 Oximetry 07/10/21 07/10/21 07/10/21 21:27 21:29 21:30 Temperature 98.1 F Pulse Rate 93 H 89 89 Respiratory 18 Rate Blood Pressure 157/95 161/102 O2 Sat by Pulse 100 100 Oximetry 07/10/21 07/10/21 07/10/21 21:31 21:34 21:35 Temperature Pulse Rate 89 89 96 H Respiratory Rate Blood Pressure 157/100 159/95 O2 Sat by Pulse 100 Oximetry 07/10/21 07/10/21 07/10/21 21:39 21:40 21:44 Temperature Pulse Rate 102 H 96 H 95 H Respiratory Rate Blood Pressure 156/94 O2 Sat by Pulse 100 100 Oximetry 07/10/21 07/10/21 07/10/21 21:45 21:49 21:50 Temperature Pulse Rate 93 H 94 H 93 H Respiratory Rate Blood Pressure 152/95 155/102 O2 Sat by Pulse 100 Oximetry 07/10/21 07/10/21 07/10/21 21:54 21:55 21:59 Temperature Pulse Rate 91 H 88 80 Respiratory Rate Blood Pressure 152/100 O2 Sat by Pulse 100 100 Oximetry 07/10/21 07/10/21 07/10/21 22:00 22:04 22:05 Temperature Pulse Rate 78 78 78 Respiratory Rate Blood Pressure 149/91 150/92 O2 Sat by Pulse 100 Oximetry 07/10/21 07/10/21 07/10/21 22:09 22:10 22:14 Temperature Pulse Rate 74 75 81 Respiratory Rate Blood Pressure 150/95 O2 Sat by Pulse 100 100 Oximetry 07/10/21 07/10/21 07/10/21 22:15 22:19 22:24 Temperature Pulse Rate 78 76 101 H Respiratory Rate Blood Pressure 146/99 O2 Sat by Pulse 100 100 Oximetry 07/10/21 07/10/21 07/10/21 22:29 22:34 22:39 Temperature Pulse Rate 99 H 93 H 89 Respiratory Rate Blood Pressure O2 Sat by Pulse 100 100 99 Oximetry 07/10/21 07/10/21 07/10/21 22:44 22:49 22:54 Temperature Pulse Rate 88 83 95 H Respiratory Rate Blood Pressure O2 Sat by Pulse 99 100 100 Oximetry 07/10/21 07/10/21 07/10/21 22:59 23:04 23:09 Temperature Pulse Rate 89 77 80 Respiratory Rate Blood Pressure O2 Sat by Pulse 100 100 100 Oximetry 07/10/21 07/10/21 07/10/21 23:14 23:19 23:24 Temperature Pulse Rate 75 109 H 84 Respiratory Rate Blood Pressure O2 Sat by Pulse 100 100 100 Oximetry 07/10/21 07/10/21 07/10/21 23:29 23:34 23:39 Temperature Pulse Rate 91 H 95 H 96 H Respiratory Rate Blood Pressure 141/81 O2 Sat by Pulse 100 100 100 Oximetry 07/10/21 07/10/21 07/10/21 23:44 23:49 23:54 Temperature Pulse Rate 85 86 87 Respiratory Rate Blood Pressure O2 Sat by Pulse 100 100 100 Oximetry 07/10/21 07/11/21 07/11/21 23:59 00:04 00:09 Temperature Pulse Rate 83 90 84 Respiratory Rate Blood Pressure O2 Sat by Pulse 100 100 100 Oximetry 07/11/21 07/11/21 07/11/21 00:14 00:19 00:20 Temperature Pulse Rate 89 85 85 Respiratory Rate Blood Pressure 134/86 O2 Sat by Pulse 100 98 Oximetry 07/11/21 07/11/21 07/11/21 00:24 00:29 00:34 Temperature Pulse Rate 92 H 91 H 81 Respiratory Rate Blood Pressure O2 Sat by Pulse 100 100 100 Oximetry 07/11/21 07/11/21 07/11/21 00:39 00:44 00:49 Temperature Pulse Rate 83 82 85 Respiratory Rate Blood Pressure O2 Sat by Pulse 100 99 100 Oximetry 07/11/21 07/11/21 07/11/21 00:54 00:59 01:04 Temperature Pulse Rate 83 86 87 Respiratory Rate Blood Pressure O2 Sat by Pulse 99 99 99 Oximetry 07/11/21 07/11/21 07/11/21 01:09 01:14 01:19 Temperature Pulse Rate 86 90 91 H Respiratory Rate Blood Pressure O2 Sat by Pulse 99 98 99 Oximetry 07/11/21 07/11/21 07/11/21 01:21 01:24 01:29 Temperature Pulse Rate 100 H 104 H 88 Respiratory Rate Blood Pressure 150/96 O2 Sat by Pulse 99 99 Oximetry 07/11/21 07/11/21 07/11/21 01:30 01:34 01:39 Temperature Pulse Rate 91 H 90 88 Respiratory Rate Blood Pressure 127/71 O2 Sat by Pulse 98 99 Oximetry 07/11/21 07/11/21 07/11/21 01:44 01:49 01:50 Temperature 98.9 F Pulse Rate 79 82 Respiratory Rate Blood Pressure O2 Sat by Pulse 100 100 Oximetry 07/11/21 07/11/21 07/11/21 01:54 01:59 02:04 Temperature Pulse Rate 86 92 H 90 Respiratory Rate Blood Pressure O2 Sat by Pulse 99 99 99 Oximetry 07/11/21 07/11/21 07/11/21 02:09 02:14 02:19 Temperature Pulse Rate 91 H 93 H 92 H Respiratory Rate Blood Pressure O2 Sat by Pulse 99 99 99 Oximetry 07/11/21 07/11/21 07/11/21 02:20 02:24 02:29 Temperature Pulse Rate 93 H 101 H 87 Respiratory Rate Blood Pressure 121/72 O2 Sat by Pulse 99 99 Oximetry 07/11/21 07/11/21 07/11/21 02:34 02:39 02:44 Temperature Pulse Rate 110 H 103 H 107 H Respiratory Rate Blood Pressure O2 Sat by Pulse 99 98 98 Oximetry 07/11/21 07/11/21 07/11/21 02:49 02:54 02:59 Temperature Pulse Rate 89 89 92 H Respiratory Rate Blood Pressure O2 Sat by Pulse 100 100 99 Oximetry 07/11/21 07/11/21 07/11/21 03:04 03:09 03:14 Temperature Pulse Rate 94 H 93 H 99 H Respiratory Rate Blood Pressure O2 Sat by Pulse 100 99 99 Oximetry 07/11/21 07/11/21 07/11/21 03:19 03:20 03:24 Temperature Pulse Rate 89 87 87 Respiratory Rate Blood Pressure 141/85 O2 Sat by Pulse 99 99 Oximetry 07/11/21 07/11/21 07/11/21 03:29 03:34 03:39 Temperature Pulse Rate 93 H 88 89 Respiratory Rate Blood Pressure O2 Sat by Pulse 99 100 99 Oximetry 07/11/21 07/11/21 07/11/21 03:44 03:49 03:54 Temperature Pulse Rate 90 88 95 H Respiratory Rate Blood Pressure O2 Sat by Pulse 100 99 100 Oximetry 07/11/21 07/11/21 07/11/21 03:59 04:04 04:09 Temperature Pulse Rate 92 H 78 83 Respiratory Rate Blood Pressure O2 Sat by Pulse 100 100 99 Oximetry 07/11/21 07/11/21 07/11/21 04:14 04:19 04:20 Temperature Pulse Rate 82 84 80 Respiratory Rate Blood Pressure 130/75 O2 Sat by Pulse 100 99 Oximetry 07/11/21 07/11/21 07/11/21 04:24 04:29 04:34 Temperature Pulse Rate 99 H 91 H 84 Respiratory Rate Blood Pressure O2 Sat by Pulse 99 100 99 Oximetry 07/11/21 04:39 Temperature Pulse Rate 92 H Respiratory Rate Blood Pressure O2 Sat by Pulse 100 Oximetry - Exam Narrative Exam: Urine in younger catheter at this time is steve in color but clear. Breasts: deferred Cardiovascular: Regular rate Lungs: Normal air movement Abdomen: Present: normal appearance Vulva: both: normal Uterine Contraction Monitor Mode: External Cervical Dilatation: 3.5 Cervical Effacement Percentage: 80 station: -1 Uterine Contraction Pattern: Irregular Uterine Tone Measurement Phase: Resting Uterine Contraction Intensity: Moderate - Labs Labs: Abnormal Labs 07/09/21 07/09/21 07/10/21 10:50 10:50 10:22 WBC 14.4 H 17.7 H RBC 2.55 L Hgb 7.1 L D Hct 21.6 L D Plt Count 79 L Fibrinogen D-Dimer Sodium Carbon Dioxide Glucose Alkaline Phosphatase Total Protein Albumin Crossmatch See Detail 07/10/21 07/10/21 07/10/21 10:22 13:46 13:46 WBC 19.1 H RBC 2.44 L Hgb 6.9 L Hct 20.5 L Plt Count 82 L Fibrinogen 169 L D-Dimer > 30938 H Sodium 134 L Carbon Dioxide 20 L Glucose 108 H Alkaline Phosphatase 338 H Total Protein 5.8 L Albumin 3.0 L Crossmatch 07/10/21 07/11/21 20:39 00:06 WBC 20.5 H RBC 2.74 L Hgb 7.7 L Hct 23.1 L Plt Count 85 L 79 L Fibrinogen D-Dimer Sodium Carbon Dioxide Glucose Alkaline Phosphatase Total Protein Albumin Crossmatch Laboratory Results - last 24 hr 07/09/21 07/10/21 07/10/21 10:50 10:22 10:22 WBC 17.7 H RBC 2.55 L Hgb 7.1 L D Hct 21.6 L D MCV 85 MCH 28 MCHC 33 RDW 14.7 Plt Count 79 L PT INR APTT Fibrinogen D-Dimer Sodium 134 L Potassium 3.9 Chloride 102.1 Carbon Dioxide 20 L Anion Gap 16 BUN 12 Creatinine 0.7 Estimated GFR > 60 BUN/Creatinine Ratio 17 Glucose 108 H Calcium 8.9 Total Bilirubin 0.20 AST 16 ALT 8 Alkaline Phosphatase 338 H Total Protein 5.8 L Albumin 3.0 L Albumin/Globulin Ratio 1.1 SARS-CoV-2 (PCR) Blood Type B POSITIVE Antibody Screen Negative Crossmatch See Detail 07/10/21 07/10/21 07/10/21 10:45 13:46 13:46 WBC 19.1 H RBC 2.44 L Hgb 6.9 L Hct 20.5 L MCV 84 MCH 28 MCHC 34 RDW 14.8 Plt Count 82 L PT 14.7 INR 1.03 APTT 28.1 Fibrinogen 169 L D-Dimer > 90622 H Sodium Potassium Chloride Carbon Dioxide Anion Gap BUN Creatinine Estimated GFR BUN/Creatinine Ratio Glucose Calcium Total Bilirubin AST ALT Alkaline Phosphatase Total Protein Albumin Albumin/Globulin Ratio SARS-CoV-2 (PCR) Negative Blood Type Antibody Screen Crossmatch 07/10/21 07/11/21 20:39 00:06 WBC 20.5 H RBC 2.74 L Hgb 7.7 L Hct 23.1 L MCV 84 MCH 28 MCHC 34 RDW 14.9 Plt Count 85 L 79 L PT INR APTT Fibrinogen D-Dimer Sodium Potassium Chloride Carbon Dioxide Anion Gap BUN Creatinine Estimated GFR BUN/Creatinine Ratio Glucose Calcium Total Bilirubin AST ALT Alkaline Phosphatase Total Protein Albumin Albumin/Globulin Ratio SARS-CoV-2 (PCR) Blood Type Antibody Screen Crossmatch
[2021-07-11 05:02] LABS: Hemoglobin 6.9 gm/dl (10.1-14.3); Mean Corpuscular HGB Conc 33 % (30-34); Mean Corpuscular Volume 85 fl (79-97); Red Blood Count 2.48 M/mm3 (3.65-5.03); Red Cell Distribution Width 14.5 % (13.2-15.2)
[2021-07-11 05:09] LABS: INR 0.97 (0.87-1.13); Platelet Count 82 K/mm3 (140-440)
[2021-07-11 05:10] LABS: Partial Thromboplastin Time 27.9 Sec. (24.2-36.6)
[2021-07-11 05:26] LABS: Alanine Aminotransferase 10 units/L (7-56); Albumin 3.2 g/dL (3.9-5); Blood Urea Nitrogen 8 mg/dL (7-17); Calcium 8.7 mg/dL (8.4-10.2); Hemolysis Index 0
[2021-07-11] MEDS ORDERED: SODIUM CHLORIDE 0.9% 500 ML 500 ML IV ONE ×2 (05:32→05:50)
[2021-07-11 05:37] LABS: BUN/Creatinine Ratio 13
[2021-07-11] MEDS ORDERED: OXYTOCIN DRIP 30 UNITS/500 ML BAG IV SCH (06:00)
[2021-07-11] MEDS ORDERED: SERTRALINE 25 MG TAB PO SCH (10:00)
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
[2021-07-11] MEDS: LACTATED RINGERS 1,000 ML IV SCH (13:14)
[2021-07-11 13:39] LABS: Basophils % (Auto) 0.1 % (0.0-1.8); Eosinophils % (Auto) 0.1 % (0.0-4.3); Hemoglobin 7.8 gm/dl (10.1-14.3); Lymphocytes # (Auto) 1.6 K/mm3 (1.2-5.4); Lymphocytes % (Auto) 8.6 % (13.4-35.0); Mean Corpuscular HGB Conc 34 % (30-34); Mean Corpuscular Volume 84 fl (79-97); Monocytes # (Auto) 1.1 K/mm3 (0.0-0.8); Monocytes % (Auto) 6.1 % (0.0-7.3); Red Blood Count 2.73 M/mm3 (3.65-5.03); Red Cell Distribution Width 14.5 % (13.2-15.2)
[2021-07-11 13:40] LABS: Platelet Count 89 K/mm3 (140-440)
[2021-07-11] MEDS ORDERED: TRANEXAMIC ACID 1,000 MG in SODIUM CHLORIDE 0.9% 100 ML IV PRN (15:00)
--- NOTE | 2021-07-11 19:12 | Event Note ---
Date: 07/11/21 Patient chart reviewed. Notable drop in hemoglobin followed transfusion of 3 units pRBCs and 1 unit FFP. Most recent hemoglobin 8.6. Vital signs notable for intermittent severe range blood pressures. Suspected placental abruption with suspicion hemorrhage with extravasation of blood into uterine muscle based on change in labs. While there is concern for elevated pressure will treat pressures with Procardia 30 mg in lieu of starting Magnesium due to increased concern for hemorrhage, both now and post-delivery. Will assess urinalysis followed by P/C if blood not noted due to recent hematuria. Continue Pitocin per protocol. Will reassess for cervical change.
[2021-07-11 19:33] LABS: Bacteria,Urine 1+ /HPF (Negative); Mucus,Urine FEW /HPF
[2021-07-11 19:59] LABS: Bilirubin,Urine NEG (Negative); Blood,Urine MOD (Negative); Color,Urine Yellow (Yellow)
[2021-07-11] MEDS: NIFEdipine XL 30 MG TAB PO SCH (20:08)
[2021-07-11] MEDS: SERTRALINE 25 MG TAB PO SCH (20:09)
--- NOTE | 2021-07-11 21:31 | Procedure Note ---
OB Delivery Note - Delivery Date of Delivery: 07/11/21 Force Dispatcher: DILSHAD SKINNER Estimated blood loss: other (862g) - Vaginal Delivery presentation: vertex Delivery position: OA Intrapartum events: abruption Delivery induction: misoprostol Delivery augmentation: rupture of membranes, pitocin Delivery monitor: internal uterine Route of delivery: Delivery placenta: spontaneous Delivery cord: nuchal cord, 3 umbilical vessels Episiotomy: none Delivery laceration: none Anesthesia: none Delivery comments: Pt reports urge to push, SVE 10/100/+2. Pt encouraged in pushing efforts. Demised female fetus delivered over intact perineum. 3VC clamped x2 and cut by pt's mother. Fetus with significant skin slothing of the neck, abdomen, and back; wrapped in blanket and given to mother per pt's request. Placenta delivered spontaneously and intact. QBL 50mL.TXA, Pitocin, and Cytotec given prophylactically. 5 minutes after delivery, pt with urge to push. 812g of clots expelled. Fundus firm and below umbilicus with scant lochia. Hilda care done. All counts correct. Dr. Acharya present for delivery. POC d/w pt. Will start Ancef 2gm q8h - Infant A at 1 minute: 0 at 5 minutes: 0 Infant Gender: Female
[2021-07-11] MEDS ORDERED: BENZOCAINE/MENTHOL 20/0.5% TOP SPRAY 56 GM TP PRN (21:55)
[2021-07-11] MEDS ORDERED: ONDANSETRON 4 MG/2 ML INJ IV PRN (21:55)
[2021-07-11] MEDS ORDERED: HYDROCORTISONE 25 MG RECTAL SUPP PR PRN (21:55)
[2021-07-11] MEDS ORDERED: PROMETHAZINE 25 MG TAB PO PRN (21:55)
[2021-07-11] MEDS ORDERED: PROMETHAZINE 25 MG RECT SUPP PR PRN (21:55)
[2021-07-11] MEDS ORDERED: diphenhydrAMINE 25 MG CAP PO PRN (21:55)
[2021-07-11] MEDS ORDERED: ACETAMINOPHEN 325 MG TAB PO PRN (21:55)
[2021-07-11] MEDS ORDERED: MAGNESIUM HYDROXIDE (MOM) ORAL LIQD UDC PO PRN (21:55)
[2021-07-11] MEDS ORDERED: WITCH HAZEL/ GLYCERIN PAD TP PRN (21:55)
[2021-07-12] MEDS: oxyCODONE /ACETAMINOPHEN 5-325MG TAB PO PRN ×4 (00:36→20:42)
[2021-07-12] MEDS: traZODone 50 MG TAB PO SCH ×2 (00:41→22:08)
[2021-07-12 00:43] LABS: Hemoglobin 7.8 gm/dl (10.1-14.3); Mean Corpuscular HGB Conc 34 % (30-34); Mean Corpuscular Volume 83 fl (79-97); Platelet Count 114 K/mm3 (140-440); Red Blood Count 2.76 M/mm3 (3.65-5.03); Red Cell Distribution Width 14.7 % (13.2-15.2)
[2021-07-12 01:26] LABS: INR 0.97 (0.87-1.13)
[2021-07-12 01:27] LABS: Partial Thromboplastin Time 32.4 Sec. (24.2-36.6)
[2021-07-12] MEDS: IBUPROFEN 800 MG TAB PO SCH ×3 (03:23→17:08)
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
--- NOTE | 2021-07-12 09:08 | Event Note ---
Date: 07/12/21 Patient's blood pressures have remained stable on Procardia 30 mg daily. Denies HERNANDEZ, blurred vision, spots before her eyes, chest pain, shortness of breath. She is appropriately grieving. Bleeding is currently light. Discussed plan to transfer patient to mother baby and if she remains stable, then discharge home on 07/13. Encouraged questions and to let her concerns be known. Emotional support offered. Pt states that the medication for her anxiety and depression are helping. Has her mother in room for support.
[2021-07-12] MEDS: FERROUS SULFATE 325 MG TAB PO SCH ×3 (09:40→20:41)
[2021-07-12] MEDS: DOCUSATE SODIUM 100 MG CAP PO SCH ×2 (09:40→22:08)
[2021-07-12] MEDS: NIFEdipine XL 30 MG TAB PO SCH (09:40)
[2021-07-12] MEDS ORDERED: EPINEPHrine RACEMIC 2.25% 0.5ML NEBU IH ONE (13:43)
--- NOTE | 2021-07-12 14:00 | Post Anesthesia Evaluation ---
- Post Anesthesia Evaluation Patient Participated: Yes Airway Patent: Yes Stable Respiratory Function: Yes Nausea/Vomiting: No Temp > 96.8F: Yes Pain Manageable: Yes Adequeate Hydration: Yes Anesthesia Complications: No Block Receding Appropriately: Yes Patient on Ventilator: No
[2021-07-13] MEDS: IBUPROFEN 800 MG TAB PO SCH ×2 (00:59→06:30)
[2021-07-13] MEDS ORDERED: TETANUS,DIPH,PERTUSS(ACELL) VACCINE 0.5 ML SYRINGE IM ONE (06:00)
[2021-07-13] MEDS ORDERED: SERTRALINE 50 MG TAB PO SCH (10:00)
[2021-07-13] MEDS: SERTRALINE 25 MG TAB PO SCH (11:35)
[2021-07-13] MEDS: FERROUS SULFATE 325 MG TAB PO SCH (11:35)
[2021-07-13] MEDS: oxyCODONE /ACETAMINOPHEN 5-325MG TAB PO PRN (11:36)
[2021-07-13] MEDS: DOCUSATE SODIUM 100 MG CAP PO SCH (11:36)
[2021-07-13] MEDS: NIFEdipine XL 30 MG TAB PO SCH (11:41)
[2021-07-13 12:11] VITALS: BP 112/78
--- NOTE | 2021-07-13 12:54 | Discharge Summary ---
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 Hospitalization Reason for admission: Induction of labor, demise Condition: Good Pertinent studies: post delivery H&H 7.8/23.0, asymptomatic anemia following acute blood loss Procedures: nonviable infant Hospital course: vaginal delivery and course Disposition: 01 HOME / SELF CARE / HOMELESS Final Discharge Diagnosis (Prints w/discharge instructions): vaginal delivery Time spent for discharge: 45 - Discharge Diagnoses (1) Anxiety Status: Acute (2) Depression Status: Acute (3) IUFD at 20 weeks or more of gestation Status: Acute (4) PTSD (post-traumatic stress disorder) Status: Acute (5) (spontaneous vaginal delivery) Status: Acute Core Measure Documentation - Palliative Care Palliative Care/ Comfort Measures: Not Applicable - Core Measures Any of the following diagnoses?: none Exam - Constitutional Vitals: Temp Pulse Resp BP Pulse Ox 98.9 F 98 H 18 112/78 95 07/13/21 11:53 07/13/21 11:53 07/13/21 11:53 07/13/21 11:53 07/13/21 11:53 General appearance: Present: no acute distress, well-nourished - EENT Eyes: Present: PERRL ENT: hearing intact, clear oral mucosa - Neck Neck: Present: supple, normal ROM - Respiratory Respiratory effort: normal Respiratory: bilateral: CTA - Cardiovascular Rhythm: regular Heart Sounds: Absent: rub, click - Extremities Extremities: No edema Peripheral Pulses: within normal limits - Abdominal General gastrointestinal: Present: soft, non-tender, non-distended, normal bowel sounds Female genitourinary: Present: normal - Integumentary Integumentary: Present: clear, warm, dry - Musculoskeletal Musculoskeletal: gait normal, strength equal bilaterally - Psychiatric Psychiatric: appropriate mood/affect, intact judgment & insight - Neurologic Neurologic: CNII-XII intact, moves all extremities - Additional findings Additional findings: Lochia scant, fundus firm, denies HI or SI, shows insight and appropriate grieving. Plan Activity: no restrictions Diet: regular Care Plan Goals: Call your doctor immediately for: * Fever > 100.5 * Heavy vaginal bleeding ( >1 pad per hour) * Severe persistent headache * Shortness of breath * Reddened, hot, painful area to leg or breast Follow up with: JYOTSNA KNIGHT MD [Primary Care Provider] - 7 Days CAL COBIAN MD [Staff Physician] - 7 Days (Call [phone] to schedule a visit in 4 weeks, a provider will call you in 1 week on your primary phone number. Please call for any questions or concerns. Professional and Agency Contacts To help [facility](14/09) [place] Crisis Line: Suicide Prevention Line: Crisis Text Line: Text START to [phone] Emergency: 911 Outpatient COMMUNITY Behavioral Health Resources: JUAN[facility]: [facility] [address] [place], [place] [address] [facility] [address] [place] [address] [facility] - [address] [place] [address] Wednesday thru Wednesday - 8am - 5pm [facility] Address: [address] [place] [address] [facility]: [facility] Address: [address] [place] [address] Wednesday thru Wednesday- 7am-2pm [facility] Address: [address] [place] [address] Wednesday thru Wednesday: 8:30AM-5PM OUTPATIENT MENTAL HEALTH RESOURCES [facility], [address] [place], [place] [id number] [facility] Prabhakar Jeremy RIVERA: [address] [place] [address] [facility]: [address] [place], [place] [id number] [facility] [address] [place], [place] [id number] [phone] [facility]: [address] [facility] [address] [place], [place] [id number] [facility]: [address] [place] [id number] [facility]: [facility] [place], [place] Filipe Landry MD: [address] [facility] [id number] [facility]: [address] [facility] [place], [place] [id number] [phone] [place] CRISIS AND ACCESS LINE: * ) Forms: [facility] Discharge Summary Prescriptions: traZODone [Desyrel] 50 mg PO QHS 30 Days #30 tab Docusate Sodium [Colace] 100 mg PO BID PRN #60 capsule PRN Reason: Constipation Ferrous Sulfate [Feosol 325 MG tab] 325 mg PO QDAY #30 tablet Ibuprofen [Motrin] 800 mg PO Q8HR PRN #30 tablet PRN Reason: Pain, Moderate (4-6) NIFEdipine XL [Procardia Xl] 30 mg PO QDAY #30 tablet hydrOXYzine PAMOATE [Vistaril] 25 mg PO Q6HR PRN 30 Days #60 capsule PRN Reason: Anxiety Sertraline [Zoloft] 25 mg PO QDAY 30 Days #30 tab
--- NOTE | 2021-07-14 07:47 | Ultrasound Report ---
Limited abdominal ultrasound INDICATION: 33 week with demise, question of intra-abdominal hemorrhage FINDINGS: Limited examination of the abdomen for free fluid shows only a trace of free fluid in the M orison's pouch area between the right kidney and liver. This fluid does not show significant internal echoes to suggest blood. No other free fluid is obvious. No organized fluid collections are detected . Signer Name: Tyson Briones MD Signed: 07/14/2021 7:43 AM Workstation Name: [id number]
[2021-07-14] MEDS ORDERED: SERTRALINE 50 MG TAB PO SCH (10:00)
== END 2021-07-13 13:55 | disposition home or self-care (01) | DRG 774 ==
LOC: TRG 10:11 → LD 10:53 → TRG 11:18 → OB 07-12 10:11
PROVIDERS: ADMIT Obstetrics & Gynecology; ATTEND Obstetrics & Gynecology
PROC: 10E0XZZ Delivery of Products of Conception, External Approach (ICD-10-PCS; principal; 2021-07-11)
PROC: 10907ZC Drainage of Amniotic Fluid, Therapeutic from Products of Conception, Via Natural or Artificial Opening (ICD-10-PCS; 2021-07-11)
PROC: 3E0R3BZ Introduction of Anesthetic Agent into Spinal Canal, Percutaneous Approach (ICD-10-PCS; 2021-07-11)
PROC: 00HU33Z Insertion of Infusion Device into Spinal Canal, Percutaneous Approach (ICD-10-PCS; 2021-07-11)
DX: O36.4XX0 Maternal care for intrauterine death, not applicable or unspecified (principal); O45.93 Premature separation of placenta, unspecified, third trimester; F43.11 Post-traumatic stress disorder, acute; Z20.822 Contact with and (suspected) exposure to COVID-19; O99.344 Other mental disorders complicating childbirth; F41.9 Anxiety disorder, unspecified; O60.14X0 Preterm labor third trimester with preterm delivery third trimester, not applicable or unspecified; F32.A Depression, unspecified; O99.214 Obesity complicating childbirth; Z3A.33 33 weeks gestation of pregnancy; O69.1XX0 Labor and delivery complicated by cord around neck, with compression, not applicable or unspecified; Z37.1 Single stillbirth; O90.81 Anemia of the puerperium; D62 Acute posthemorrhagic anemia
CPT/HCPCS: 36415; 74176; 76705; 76815; 80053; 80307; 81001; 85025; 85027; 85049; 85379; 85384; 85610; 85730; 86592; 86850; 86900; 86901; 86920; 87076; 87086; 87186; 88305; G0378; J3490; J0456; J0595; J0690; J1170; J1200; J2270; J2405; J2590; J7120; P9016; P9017; U0003